=== PATIENT | female | born 1940 | race Caucasian/White ===

== ENCOUNTER 2019-09-16 06:11 | Inpatient (IN) | payer OTHER ==
[2019-09-13 08:07] VITALS: BMI 32.4
[2019-09-16] MEDS ORDERED: ceFAZolin SODIUM 1 GM VIAL ONE ×5 (07:06→19:58)
[2019-09-16 07:12] LABS: INR 0.97 (0.83-1.09); PROTHROMBIN TIME (PATIENT) 11.5 SEC (9.7-13.0)
[2019-09-16 07:14] LABS: ACTIVATED PTT 32.1 SECONDS (25.2-36.5)
[2019-09-16] MEDS ORDERED: BUPIVACAINE LIPOSOME/PF (EXPAREL) 266 MG/20 ML VIAL ONE (07:17)
[2019-09-16] MEDS ORDERED: BUPIVACAINE HCL/PF 0.25% (2.5MG/ML) 10 ML VIAL ONE (07:17)
[2019-09-16] MEDS ORDERED: HEPARIN NA (PORCINE) 5,000 UNITS/ML 1ML VIAL ONE (07:17)
[2019-09-16] MEDS ORDERED: THROMBIN (BOVINE) 5,000 UNIT VIAL TP ONE ×2 (07:18→10:23)
[2019-09-16] MEDS ORDERED: BENZOIN/ALOE VERA/STORAX/TOLU 58 ML BOTTLE ONE (07:18)
[2019-09-16] MEDS ORDERED: fentaNYL CITRATE 250 MCG/5 ML VIAL ONE (07:37)
[2019-09-16] MEDS ORDERED: PROPOFOL 20 ML ONE ×14 (07:38→13:20)
[2019-09-16] MEDS ORDERED: SUCCINYLCHOLINE CHLORIDE 200 MG/10 ML SYRINGE ONE (07:39)
[2019-09-16] MEDS ORDERED: MIDAZOLAM HCL 2 MG/2 ML SINGLE DOSE VIAL ONE (07:39)
[2019-09-16] MEDS ORDERED: morphine SULFATE/PF 0.5 MG/ML (2cc Syringe - QUVA) ONE (07:49)
[2019-09-16] MEDS ORDERED: ceFAZolin SODIUM 1 GM VIAL IVPB ONE ×2 (08:45→13:00)
[2019-09-16] MEDS ORDERED: VANCOMYCIN 1,000 MG VIAL (RESTRICTED TO ID ONLY) IVPB ONE (08:50)
[2019-09-16] MEDS ORDERED: ROCURONIUM BROMIDE 50 MG/5 ML SYRINGE ONE ×2 (09:38→13:22)
[2019-09-16] MEDS ORDERED: LIDOCAINE HCL/PF 2% SDV 5ML VIAL ONE (10:03)
[2019-09-16] MEDS ORDERED: ONDANSETRON 4 MG/2 ML VIAL ONE (10:03)
[2019-09-16] MEDS ORDERED: DEXAMETHASONE SOD PHOSPHATE 4 MG/1 ML VIAL ONE (10:03)
[2019-09-16] MEDS ORDERED: SODIUM CHLORIDE 0.9% P/F 10 ML VIAL IJ ONE (10:03)
[2019-09-16] MEDS ORDERED: LIDOCAINE HCL 2% JELLY (5 ML/TUBE) ONE (10:03)
[2019-09-16] MEDS ORDERED: PHENYLEPHRINE HCL 10 MG/1 ML SINGLE DOSE VIAL ONE (10:03)
[2019-09-16] MEDS ORDERED: GLYCOPYRROLATE 0.2 MG/1 ML VIAL ONE (10:03)
[2019-09-16] MEDS ORDERED: VANCOMYCIN 1,000 MG VIAL (RESTRICTED TO ID ONLY) ONE (10:03)
[2019-09-16] MEDS ORDERED: GELATIN, ABSORBABLE 100 EACH SPONGE TP ONE (10:24)
[2019-09-16] MEDS ORDERED: TRANEXAMIC ACID 1000 MG/10 ML VIAL IVPUSH ONE (13:12)
[2019-09-16] MEDS ORDERED: CEFAZOLIN 2 GM in DEXTROSE 5%-WATER - 50 ML IVPB ONE (13:12)
[2019-09-16] MEDS ORDERED: VANCOMYCIN HCL 1,250 MG in DEXTROSE 5%-WATER - 250 ML IVPB ONE (13:12)
[2019-09-16] MEDS ORDERED: BUPIVACAINE HCL/PF 2.5 MG/ML - 30 ML VIAL IJ ONE (13:29)
[2019-09-16] MEDS ORDERED: BUPIVACAINE LIPOSOME/PF (EXPAREL) 266 MG/20 ML VIAL NR ONE (13:30)
[2019-09-16] MEDS ORDERED: TRANEXAMIC ACID 1000 MG/10 ML VIAL ONE (13:32)
[2019-09-16] MEDS ORDERED: diphenhydrAMINE HCL 25 MG CAPSULE (FP) PO PRN (13:45)
[2019-09-16] MEDS ORDERED: ONDANSETRON 4 MG/2 ML VIAL IVPUSH PRN ×3 (13:45→13:51)
[2019-09-16] MEDS ORDERED: morphine SULFATE/PF 0.5 MG/ML (2cc Syringe - QUVA) IT ONE (13:51)
[2019-09-16] MEDS ORDERED: MORPHINE SULFATE 2 MG/ML VIAL IVPUSH PRN (13:51)
[2019-09-16] MEDS ORDERED: oxyCODONE HCL 5 MG TABLET PO PRN (13:51)
[2019-09-16] MEDS ORDERED: NALOXONE HCL 0.4 MG/ML VIAL IVPUSH PRN (13:51)
[2019-09-16] MEDS ORDERED: LACTATED RINGERS SOLUTION 1,000 ML IV SCH (14:00)
--- NOTE | 2019-09-16 14:07 | OP ---
Operative Note - Note: Operative Date: 09/16/19 Pre-Operative Diagnosis: spinal stenosis, Failed fusion Operation: Exploration and revision of L1-S1 decompression and fusion, removal of hardware, T12-L1 laminectomy/decompression and T11-S1 fusion Post-Operative Diagnosis: Same as Pre-op Surgeon: Jah Enriquez Boathouse Keeper: Cristina Casas Anesthesiologist/FIELD MERCHANDISER: Patricia Peoples Anesthesia: General, Spinal, Local Estimated Blood Loss (mls): 500 Drains, Volume Out (mls): 200 (agosto) Blood Volume Replaced (mls): 125 (cell saver) Fluid Volume Replaced (mls): 1,500 Operative Report Dictated: Yes
[2019-09-16] MEDS ORDERED: CEFAZOLIN 1 GM in DEXTROSE 5%-WATER - 50 ML IVPB SCH (16:00)
[2019-09-16] MEDS ORDERED: metFORMIN HCL 500 MG TABLET (FP) PO SCH (16:30)
[2019-09-16] MEDS ORDERED: GLIMEPIRIDE 4 MG TABLET PO SCH (16:30)
[2019-09-16] MEDS: LACTATED RINGERS SOLUTION 1,000 ML/1,000 ML INFUS.BAG IV SCH (16:30)
[2019-09-16] MEDS ORDERED: INSULIN SLIDING SCALE (NOVOLOG) 1 VIAL SQ SCH (16:30)
[2019-09-16] MEDS ORDERED: DEXTROSE 5%-WATER - 50 ML IVPB ONE ×2 (17:07→19:58)
--- NOTE | 2019-09-16 17:07 | CONSULT ---
Consultation: REQUESTING PROVIDER: Dr. Enriquez CONSULT REQUEST: We have been asked to medically evaluate this patient for post- operative management; patient is s/p exploration and revision of L1-S1 decompression and fusion, removal of hardware, T12-L1 laminectomy/decompression, and T11-S1 fusion. HISTORY OF PRESENT ILLNESS: 78 yo F PMH HTN, HLD, DM, CAD with intermittent claudication and b/l leg numbness and paresthesias to the knees, spinal stenosis w/ prior failed fusion, s/p exploration and revision of L1-S1 decompression and fusion, removal of hardware, T12-L1 laminectomy/decompression, and T11-S1 fusion on 09/16/2019. POD #0. Estimated Blood Loss (mls): 500 Drains, Volume Out (mls): 200 (Alvarez) Blood Volume Replaced (mls): 125 (cell saver) Fluid Volume Replaced (mls): 1,500 Patient denies feeling any pain. Complains of mild throat dryness and pain, as well as nausea. At baseline, patient reports that is able to ambulate with a cane or a walker, which she has used consistently for the past 7 years. She describes her pain as "burning numbness", which she has felt for the past 7 years since her prior fusion. Reports that the feeling from her knees down is approximately 50% of her normal elsewhere. She does not have any numbness or tingling above her knees currently, but occasionally feels similar symptoms down her arms and into her hands. Her pain is unchanged by the time of day, level of activity, or position, and is located in her lower back and both legs below the knees. Initially, she controlled her pain only with Aleve, later also used Vicodin and Percocet, but ultimately weaned herself back to only Aleve. She got the surgery due to ongoing pain that she could not take anymore. REVIEW OF SYSTEMS: CONSTITUTIONAL: denies fever, chills, diaphoresis, generalized weakness, malaise, loss of appetite, weight change HEENT: endorses dry throat, mild pain. Denies rhinorrhea, nasal congestion, throat swelling, difficulty swallowing, mouth swelling, ear pain, eye pain, visual changes CARDIOVASCULAR: denies chest pain, syncope, palpitations, irregular heart rate, lightheadedness, peripheral edema RESPIRATORY: denies cough, shortness of breath, dyspnea with exertion, orthopnea, wheezing, stridor, hemoptysis GASTROINTESTINAL: endorses nausea without vomiting. Denies abdominal pain, abdominal distension, diarrhea, constipation, melena, hematochezia GENITOURINARY: denies dysuria, frequency, urgency, hesitancy, hematuria, flank pain, genital pain MUSCULOSKELETAL: denies myalgias, arthralgias, joint swelling, back pain, neck pain SKIN: denies rash, itching, pallor HEMATOLOGIC/IMMUNOLOGIC: denies easy bleeding, easy bruising, lymphadenopathy, frequent infections ENDOCRINE: denies unexplained weight gain, unexplained weight loss, heat intolerance, cold intolerance NEUROLOGIC: endorses paresthesias, burning pain and numbness below knees bilaterally. Denies headache, focal weakness, dizziness, unsteady gait, seizure, mental status changes, bladder or bowel incontinence PSYCHIATRIC: denies anxiety, depression, suicidal or homicidal ideation, hallucinations. PHYSICAL EXAMINATION Vital Signs - 24 hr 09/16/19 09/16/19 09/16/19 06:55 06:56 14:12 Temperature 98.0 F 98.6 F Pulse Rate 89 110 H Respiratory 20 10 Rate Blood Pressure 148/83 120/71 O2 Sat by Pulse 98 98 Oximetry (%) 09/16/19 09/16/19 09/16/19 14:25 14:40 14:55 Temperature Pulse Rate 105 H 102 H 95 H Respiratory 12 10 14 Rate Blood Pressure 113/57 L 117/57 L 125/62 O2 Sat by Pulse 99 95 99 Oximetry (%) 09/16/19 09/16/19 09/16/19 15:10 15:25 15:40 Temperature Pulse Rate 92 H 95 H 94 H Respiratory 14 15 14 Rate Blood Pressure 119/66 128/69 116/60 O2 Sat by Pulse 98 100 96 Oximetry (%) 09/16/19 09/16/19 09/16/19 15:55 16:10 16:25 Temperature Pulse Rate 95 H 96 H 90 Respiratory 14 16 14 Rate Blood Pressure 109/60 126/60 98/55 L O2 Sat by Pulse 97 97 98 Oximetry (%) 09/16/19 16:35 Temperature 97.8 F Pulse Rate 94 H Respiratory 14 Rate Blood Pressure 108/57 L O2 Sat by Pulse 98 Oximetry (%) GENERAL: Awake, alert, and fully oriented, in no acute distress. HEAD: Normal with no signs of trauma. EYES: Pupils equal, round and reactive to light, extraocular movements intact, sclera anicteric, conjunctiva clear EARS, NOSE, THROAT: Ears normal, nares patent, oropharynx clear NECK: Normal range of motion, supple LUNGS: Breath sounds equal, clear to auscultation bilaterally HEART: Regular rate and rhythm, normal S1 and S2 without murmur, rub or gallop ABDOMEN: Soft, nontender, not distended, normoactive bowel sounds, no guarding, no rebound MUSCULOSKELETAL: Normal range of motion at all joints. No bony deformities or tenderness. No CVA tenderness. UPPER EXTREMITIES: 2+ pulses, warm, well-perfused. No cyanosis. LOWER EXTREMITIES: 2+ pulses, warm, well-perfused. No calf tenderness. No peripheral edema. NEUROLOGICAL: Cranial nerves II-XII intact. Normal speech. 5/10 sensation to light touch below both knees. 5/5 strength in all extremities. PSYCHIATRIC: Cooperative. Good eye contact. Appropriate mood and affect. SKIN: Warm, dry, bandage in place on back, clean, dry and intact Laboratory Results - last 24 hr 09/16/19 09/16/19 09/16/19 06:26 06:26 06:45 PT with INR 11.50 INR 0.97 PTT (Actin FS) 32.1 POC Glucometer 174 Blood Type A POSITIVE Antibody Screen Negative Crossmatch See Detail 09/16/19 09/16/19 07:15 14:54 PT with INR INR PTT (Actin FS) POC Glucometer 307 Blood Type A POSITIVE Antibody Screen Crossmatch Active Medications Generic Name Dose Route Start Last Admin Trade Name Freq PRN Reason Stop Dose Admin Acetaminophen 650 mg 09/16/19 14:00 Tylenol - PO Q6H VENESSA Aspirin 81 mg 09/18/19 10:00 Ecotrin - PO BID VENESSA Atorvastatin Calcium 20 mg 09/16/19 22:00 Lipitor - PO HS VENESSA Chlorhexidine Gluconate 1 applic 09/16/19 22:00 Hibiclens For Decolonization - TP HS VENESSA Diphenhydramine HCl 25 mg 09/16/19 13:45 Benadryl - PO Q6H PRN FOR ITCHING Diphenhydramine HCl 25 mg 09/16/19 13:51 Benadryl Injection - IVPUSH ONCE PRN FOR ITCHING Docusate Sodium 100 mg 09/16/19 14:00 Colace - PO TID [facility] Fentanyl 50 mcg 09/16/19 13:46 09/16/19 15:30 Sublimaze Injection - IVPUSH 25 mcg [id number] PRN Administration PAIN-PACU ORDER X 4 DOSES ONLY Ferrous Sulfate 325 mg 09/17/19 10:00 Feosol - PO DAILY [facility] Folic Acid 1 mg 09/17/19 10:00 Folic Acid - PO DAILY [facility] Glimepiride 4 mg 09/16/19 16:30 Amaryl - PO BIDAC [facility] Lactated Ringer's 1,000 mls @ 75 mls/hr 09/16/19 14:00 Lactated Ringers Solution IV ASDIR [facility] Cefazolin Sodium 1 gm/ 50 mls @ 100 mls/hr 09/16/19 16:00 Dextrose IVPB 09/17/19 08:29 Q8H [facility] Lactated Ringer's 1,000 ml in 1,000 mls @ 100 mls/hr 09/16/19 13:45 09/16/19 16:30 Lactated Ringers Solution IV 0 mls ASDIR [facility] Administration Insulin Aspart 1 vial 09/16/19 16:30 Novolog Vial Sliding Scale - SQ TIDAC [facility] Protocol Metformin HCl 1,000 mg 09/16/19 16:30 Glucophage - PO BIDAC [facility] Morphine Sulfate 2 mg 09/16/19 13:51 Morphine Sulfate IVPUSH Q3H PRN Severe Pain 7-10 Mupirocin 1 applic 09/16/19 22:00 Bactroban Ointment (For Decolonization) - NS 09/21/19 21:59 BID [facility] Naloxone HCl 0.4 mg 09/16/19 13:51 Narcan - IVPUSH ONCE PRN Sedation Non-Formulary Medication 10 unit 09/17/19 10:00 Insulin Aspart [Novolog] SQ DAILY [facility] Non-Formulary Medication 100 mg 09/17/19 10:00 Magnesium Amino Acid Chelate [Magnesium] PO DAILY [facility] Non-Formulary Medication 55 unit 09/16/19 22:00 Semaglutide [Ozempic] SQ HS [facility] Ondansetron HCl 4 mg 09/16/19 13:46 Zofran Injection IVPUSH Q6H PRN NAUSEA AND/OR VOMITING Ondansetron HCl 4 mg 09/16/19 13:45 Zofran Injection IVPUSH Q6H PRN NAUSEA Ondansetron HCl 4 mg 09/16/19 13:51 Zofran Injection IVPUSH ONCE PRN NAUSEA Oxycodone HCl 5 mg 09/16/19 13:51 Roxicodone - PO Q3H PRN Mild Pain 1-3 Oxycodone HCl 10 mg 09/16/19 13:51 Roxicodone - PO Q3H PRN Moderate Pain 4-6 Oxycodone HCl 10 mg 09/17/19 13:51 Oxycontin - PO BID VENESSA Pantoprazole Sodium 40 mg 09/17/19 10:00 Protonix - PO DAILY VENESSA Ramipril 5 mg 09/17/19 10:00 Altace - PO DAILY VENESSA Ranolazine 500 mg 09/16/19 22:00 Ranexa - PO BID VENESSA ASSESSMENT/PLAN: 78 yo F PMH HTN, HLD, IDDM, CAD with intermittent claudication, spinal stenosis w/ prior failed fusion, s/p exploration and revision of L1-S1 decompression and fusion, removal of hardware, T12-L1 laminectomy/decompression, and T11-S1 fusion on 09/16/2019. POD #0. Neuro: - awake, alert, oriented - denies any current pain - endorses ongoing numbness below her knees in both legs - PRN Zofran, oxycodone, fentanyl, diphenhydramine, morphine - hx spinal stenosis w/ prior failed fusion - s/p exploration and revision of L1-S1 decompression and fusion, removal of hardware, T12-L1 laminectomy/decompression, and T11-S1 fusion on 09/16/2019 - no focal deficits CV: - hx HTN - echo from 08/02/2019: normal LV and RV size and function, mild LVH, stage 1 (m ild) LV diastolic dysfunction, no significant valvular abnormalities - no acute concerns - continue home meds Respiratory: - no acute concerns - incentive spirometer - 4L NC GI: - no acute concerns - Protonix 40mg daily Renal: - no acute concerns Endo: - hx DM - hx HLD - continue home meds - BGM ACHS - ISS Heme/Onc: - baseline Hgb from 08/17/2019 was 12.1 - cross matched 2 units pRBCs, but not given - f/u AM CBC ID: - s/p 2g Ancef, vancomycin intra-op - planned for 1g Ancef X3 post-op - f/u posterior spine tissue samples PPX: - SCDs - TEDs - Protonix Dispo: We will continue to follow the patient. Thank you for this consultative opportunity. Visit type - Emergency Visit Emergency Visit: No - New Patient This patient is new to me today: Yes Date on this admission: 09/16/19 - Critical Care Critical Care patient: Yes Total Critical Care Time (in minutes): 45 Critical Care Statement: The care of this patient involved high complexity decision making to prevent further life threatening deterioration of the patient's condition and/or to evaluate & treat vital organ system(s) failure or risk of failure. ATTENDING PHYSICIAN STATEMENT I saw and evaluated the patient. I reviewed the resident's note and discussed the case with the resident. I agree with the resident's findings and plan as documented. SUBJECTIVE: OBJECTIVE: ASSESSMENT AND PLAN:
--- NOTE | 2019-09-16 18:37 | OP ---
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 OPERATIONS PERFORMED: 1. Removal of hardware. 2. Inspection of fusion mass. 3. Revision laminectomy at L1 and laminectomy L1-L2 with undercutting facetectomy left and right hand side. 4. Pedicle screw instrumentation T11 toS1 left and right hand side. 5. Posterolateral arthrodesis T11 to S1 left and right hand side. 6. Cartagena-Tejada osteotomy at T12-L1 level. 7. Use of bone marrow aspirate concentrate and allograft. 8. Biplanar fluoroscopy and intraoperative neuromonitoring. 9. Complex wound closure 30 cm. ANESTHESIA: General. ANTIBIOTICS GIVEN: 2 g Ancef, 1 g vancomycin preop, 1 g Kefzol given intraoperatively at the time of instrumentation. OPERATION DETAILS: Patient correctly identified. Brought to the operating room. The thoracolumbar spine was prepped and draped in the routine manner with Betadine scrub solution, wiped off with alcohol, DuraPrep applied. The patient was placed prone on a Ilan table. Bony points, eyes, and attention to the brachial plexus were all strictly and fastidiously attended to. The belly was free. Midline incision utilized. The dissection was taken proximally to the tip of the spinous process of T10 right down to S1. Proximally a subperiosteal dissection to identify the subperiosteum along the spinous process over the lamina. Immediately the top end of the rods were noted and the hardware was dissected free of fibrous tissue and bone using cautery as well as osteotomes to free the bone off the entire pedicle screw instrumentation system. The kink kyphosis was readily seen at T12-L1. There was splaying of the interspinous ligaments at T11 as well as T12-L1. Using the Dale instrumentation, the hardware was removed completely. This was from both left and right hand side. The actual fusion mass was inspected. It was found that the fusion was solid. The lordosis of the lumbar spine was well maintained, and it was at that point the original plan was to possibly just simply stabilize the thoracolumbar junction, but my concern was a breakdown of the bone graft because of the enormous forces, as she is a heavy woman, at the lumbar and lumbosacral region, so I elected to maintain instrumentation and revision bone grafting right down to the pelvis from the thoracolumbar junction. Once again, that would be from T11 all the way to the sacrum. The first component of the procedure required a decompression, which was a laminectomy with undercutting facetectomy both left and right hand side at T11,12, and revision laminectomy at L1. This was difficult because of previous revision surgery. This was tedious, but ultimately the spinal cord was freed completely at T11, T12, and L1. Incidentally, the S1 drop in neuromonitoring findings preop improved dramatically once this was had been decompressed. This explained by the fact that the S1 takeoff explained the necessity of this decompression appropriately. The adjacent level kyphosis failure was readily noted. There was segmental instability at this level. The pedicles from T11 to S1 were identified. The original pedicles were utilized as well from L1 to S1, excepting each screw that was seated was larger in size. Using anatomical guidelines from posterior as well as lateral fluoroscopy x-ray, the pedicle screws of T11 and T12 were then inserted. This was under the guidance of C-arm so that the screws were placed particularly at T12 under the endplates where the best quality of bone was. The adjacent level kyphosis and failure was at T12-L1. Instead of just relying on 1 fixation point, I elected to do 2 screws that will be 2 levels of fixation at T11-T12 to the original bone graft site that was in situ. In order to inspect the fusion mass, the entire bone graft site was taken down, and the bony anatomy was freed to enable easy access for osteoblastic activity to itself up to the bone graft material that was utilized, which was a combination of autologous bone combined with allograft bone and bone marrow concentrate, which was spun down for the CD34 cells appropriately. The pedicle screw instrumentation was uncomplicated. The screws were tested with the intraoperative neuromonitoring and found to be completely safe above 20 mA. A lateral and anterior posterior fluoroscopic evaluation revealed excellent seating of the instrumentation accordingly. Two rods were contoured to the entire construct. One crosslink utilized as well as the screws. The rods were seated in the tulips, bent, and contoured appropriately to maintain lordosis, and a crosslink enabled solid fixation of the entire construct. At that point, Exparel was seated with an 18-gauge needle into the muscle belly on the left and right hand side independently. This added to the preoperatively seated Duramorph, which was given before the incision was made by the Anesthesia team just for pain management. In order to correct kyphosis, the laminectomy at T12 and L1 was extended out laterally to effectively perform a complete facetectomy and Cartagena-Tejada osteotomy, which gave us some degree of improvement in her vertical sagittal axis balance. The entire procedure was tedious and difficult, but at the end of the procedure, all turned out exactly as planned with improvement of intraoperative neuromonitoring at S1 bilaterally noted and stabilization readily confirmed at the T11-T12, L1-L2 junction but maintenance of strength of the posterolateral arthrodesis and bone graft right down to the pelvis. Complex wound closure was utilized to close this wound. The tissues were hard and thickened. We used 1 Vicryl in the muscle, 1 Vicryl in the fascia, 1 and 2-0 Vicryl in the subcutaneous tissue plane, and dorita for skin. Drainage, 1/8-inch Hemovac x1. OVERALL COMMENT: Operation went extremely well. Difficult procedure. Difficult challenge for a woman with diabetes but no other major comorbid disease. Patient will be nursed in the ICU and then transferred to a rehabilitation facility. Strict activity modification for at least 6 months until the bone grafts are solid. MD LULU Curtis/[id number]
[2019-09-16] MEDS: ACETAMINOPHEN 325 MG TABLET (FP) PO SCH ×2 (20:00→20:01)
[2019-09-16] MEDS: CEFAZOLIN 1 GM in DEXTROSE 5%-WATER - 50 ML IVPB SCH (20:01)
[2019-09-16] MEDS: oxyCODONE HCL 5 MG TABLET PO PRN (20:02)
[2019-09-16] MEDS: ATORVASTATIN CA 20 MG TABLET (FP) PO SCH (21:00)
[2019-09-16] MEDS: MUPIROCIN 2% TOPICAL OINTMENT FOR DECOLONIZATION NS SCH (21:00)
[2019-09-16] MEDS: CHLORHEXIDINE GLUCONATE 4% CLEANSER FOR DECOLONIZATION TP SCH (21:01)
[2019-09-16] MEDS: RANOLAZINE E.R. 500 MG TABLET (FP) PO SCH (21:01)
[2019-09-16] MEDS: DOCUSATE SODIUM 100 MG CAPSULE (FP) PO SCH (21:03)
[2019-09-16] MEDS ORDERED: SEMAGLUTIDE SQ SCH (22:00)
--- NOTE | 2019-09-16 22:06 | PN ---
Teaching Attending Note Name of Resident: Manolo Rodriguez ATTENDING PHYSICIAN STATEMENT I saw and evaluated the patient. I reviewed the resident's note and discussed the case with the resident. I agree with the resident's findings and plan as documented. SUBJECTIVE: This is a 78 year old woman with a history of HTN, hyperlipidemia, CAD, type 2 DM, asthma, spine surgery who comes today for elective spine surgery. She reports having had low back pain radiating down her legs with numbness below her knees. She underwent exploration and revision of L1-S1 decompression and fusion, removal of hardware, T12-L1 laminectomy/decompression and T11-S1 fusion today. OBJECTIVE: Vital Signs Period Temp Pulse Resp BP Sys/Peña Pulse Ox Last 24 Hr 97.8 F-98.6 F 89-110 10-20 98-148/52-83 95-100 HEART: S1S2, RRR LUNGS: Clear ABDOMEN: Obese, soft, non-tender, non-distended, normal BS EXTREMITIES: No edema Laboratory Tests 09/16/19 09/16/19 09/16/19 06:26 06:26 06:45 PT with INR 11.50 INR 0.97 PTT (Actin FS) 32.1 POC Glucometer 174 Blood Type A POSITIVE Antibody Screen Negative Crossmatch See Detail 09/16/19 09/16/19 07:15 14:54 PT with INR INR PTT (Actin FS) POC Glucometer 307 Blood Type A POSITIVE Antibody Screen Crossmatch Home Medications Medication Instructions Recorded Atorvastatin Ca [Lipitor] 20 mg PO HS 09/13/19 Cholecalciferol (Vitamin D3) 1,000 unit PO DAILY 09/13/19 [Vitamin D3 -] Cyanocobalamin [Vitamin B12 -] 100 mcg PO DAILY 09/13/19 Glimepiride [Amaryl -] 4 mg PO BID 09/13/19 Insulin Aspart [Novolog] 10 unit SQ DAILY 09/13/19 Magnesium Amino Acid Chelate 100 mg PO DAILY 09/13/19 [Magnesium] Metformin HCl [Glucophage] 1,000 mg PO BID 09/13/19 Ramipril [Altace] 5 mg PO DAILY 09/13/19 Ranolazine [Ranexa] 500 mg PO BID 09/13/19 Semaglutide [Ozempic] 55 unit SQ HS 09/13/19 ASSESSMENT AND PLAN: This is a 78 year old woman with a history of HTN, hyperlipidemia, CAD, type 2 DM, asthma, spine surgery who presented for elective spine surgery secondary to spinal stenosis and failed fusion. 1. Spinal stenosis, failed fusion - s/p exploration and revision of L1-S1 decompression and fusion, removal of hardware, T12-L1 laminectomy/decompression and T11-S1 fusion on 09/16 - Pain control - Incentive spirometer - Physical therapy 2. HTN - Continue Altace 3. Hyperlipidemia - Continue Lipitor 4. CAD - Continue Ranexa 5. Type 2 DM - Hold semaglutide, metformin, glimepiride - Fingersticks with Novolog sliding scale 6. Obesity with BMI 32.4
[2019-09-16] MEDS ORDERED: ACETAMINOPHEN 1000 MG/100 ML VIAL (NON FORMULARY) IVPB ONE (22:28)
--- NOTE | 2019-09-16 22:38 | HP ---
CHIEF COMPLAINT: POD#0 s/p exploration and revision of L1-S1 decompression and fusion, removal of hardware, T12-L1 laminectomy/decompression, and T11-S1 fusion PCP: HISTORY OF PRESENT ILLNESS: This is a 78 year old female with PMH of HTN, HLD, DM, CAD, and asthma. She presented for elective surgery for spinal fusion, and is POD#0 for exploration and revision of L1-S1 decompression and fusion, removal of hardware, T12-L1 laminectomy/decompression, and T11-S1 fusion. She currently feels nauseated and endorses back pain on movement at the surgical site, and had 1 episode of watery clear vomiting during the interview. She has burped, but has not passed flatus. Her PO intake has been limited to sips of water thus far. She denies fevers/chills, chest pain, SOB, abdominal pain, diarrhea. She initially had spinal surgery done 7 years ago (also with Dr. Enriquez) and hardware was placed at the time. She had been having lower back pain for several months, associated with pain radiating down to her legs, as well as B/L numbness and tingling below the knees. After the surgery, she was pain free for 2 years, after which the pain began to re-surface. She managed the pain with Naproxen, as well as Percocet and Vicodin for a while. Recent Travel: denies PAST MEDICAL HISTORY: HTN, HLD, DM, CAD, and asthma PAST SURGICAL HISTORY: Spinal surgery 7 years ago Social History: Smoking: socially, quit many years ago Alcohol: socially (few drinks/month) Drugs: denies Allergies cyclobenzaprine [From Flexeril] Allergy (Verified 09/13/19 08:07) HOME MEDICATIONS: Home Medications Medication Instructions Recorded Atorvastatin Ca [Lipitor] 20 mg PO HS 09/13/19 Cholecalciferol (Vitamin D3) 1,000 unit PO DAILY 09/13/19 [Vitamin D3 -] Cyanocobalamin [Vitamin B12 -] 100 mcg PO DAILY 09/13/19 Glimepiride [Amaryl -] 4 mg PO BID 09/13/19 Insulin Aspart [Novolog] 10 unit SQ DAILY 09/13/19 Magnesium Amino Acid Chelate 100 mg PO DAILY 09/13/19 [Magnesium] Metformin HCl [Glucophage] 1,000 mg PO BID 09/13/19 Ramipril [Altace] 5 mg PO DAILY 09/13/19 Ranolazine [Ranexa] 500 mg PO BID 09/13/19 Semaglutide [Ozempic] 55 unit SQ HS 09/13/19 REVIEW OF SYSTEMS CONSTITUTIONAL: Absent: fever, chills, diaphoresis, generalized weakness, malaise, loss of appetite, weight change HEENT: Absent: rhinorrhea, nasal congestion, throat pain, throat swelling, difficulty swallowing, mouth swelling, ear pain, eye pain, visual changes CARDIOVASCULAR: Absent: chest pain, syncope, palpitations, irregular heart rate, lightheadedness , peripheral edema RESPIRATORY: Absent: cough, shortness of breath, dyspnea with exertion, orthopnea, wheezing, stridor, hemoptysis GASTROINTESTINAL: nausea, vomiting Absent: abdominal pain, abdominal distension, nausea, vomiting, diarrhea, constipation, melena, hematochezia GENITOURINARY: Absent: dysuria, frequency, urgency, hesitancy, hematuria, flank pain, genital pain MUSCULOSKELETAL: Absent: myalgia, arthralgia, joint swelling, back pain, neck pain SKIN: Absent: rash, itching, pallor HEMATOLOGIC/IMMUNOLOGIC: Absent: easy bleeding, easy bruising, lymphadenopathy, frequent infections ENDOCRINE: Absent: unexplained weight gain, unexplained weight loss, heat intolerance, cold intolerance NEUROLOGIC: Absent: headache, focal weakness or paresthesias, dizziness, unsteady gait, seizure, mental status changes, bladder or bowel incontinence PSYCHIATRIC: Absent: anxiety, depression, suicidal or homicidal ideation, hallucinations. PHYSICAL EXAMINATION Vital Signs - 24 hr 09/16/19 09/16/19 09/16/19 06:55 06:56 14:12 Temperature 98.0 F 98.6 F Pulse Rate 89 110 H Respiratory 20 10 Rate Blood Pressure 148/83 120/71 O2 Sat by Pulse 98 98 Oximetry (%) 09/16/19 09/16/19 09/16/19 14:25 14:40 14:55 Temperature Pulse Rate 105 H 102 H 95 H Respiratory 12 10 14 Rate Blood Pressure 113/57 L 117/57 L 125/62 O2 Sat by Pulse 99 95 99 Oximetry (%) 09/16/19 09/16/19 09/16/19 15:10 15:25 15:40 Temperature Pulse Rate 92 H 95 H 94 H Respiratory 14 15 14 Rate Blood Pressure 119/66 128/69 116/60 O2 Sat by Pulse 98 100 96 Oximetry (%) 09/16/19 09/16/19 09/16/19 15:55 16:10 16:25 Temperature Pulse Rate 95 H 96 H 90 Respiratory 14 16 14 Rate Blood Pressure 109/60 126/60 98/55 L O2 Sat by Pulse 97 97 98 Oximetry (%) 09/16/19 09/16/19 09/16/19 16:35 17:45 20:21 Temperature 97.8 F Pulse Rate 94 H 91 H Respiratory 14 10 Rate Blood Pressure 108/57 L 108/52 L O2 Sat by Pulse 98 95 Oximetry (%) GENERAL: Awake, alert, and fully oriented, in no acute distress. HEAD: Normal with no signs of trauma. EYES: Pupils equal, round and reactive to light, extraocular movements intact, sclera anicteric, conjunctiva clear. No lid lag. EARS, NOSE, THROAT: Ears normal, nares patent, oropharynx clear without exudates. Moist mucous membranes. NECK: Normal range of motion, supple without lymphadenopathy, JVD, or masses. LUNGS: Breath sounds equal, clear to auscultation bilaterally. No wheezes, and no crackles. No accessory muscle use. HEART: Regular rate and rhythm, normal S1 and S2 without murmur, rub or gallop. ABDOMEN: Soft, nontender, not distended, normoactive bowel sounds, no guarding, no rebound, no masses. No hepatomegaly or splenomegaly. MUSCULOSKELETAL: Normal range of motion at all joints. No bony deformities or tenderness. No CVA tenderness. UPPER EXTREMITIES: 2+ pulses, warm, well-perfused. No cyanosis. No clubbing. No peripheral edema. LOWER EXTREMITIES: 2+ pulses, warm, well-perfused. No calf tenderness. No peripheral edema. NEUROLOGICAL: Motor 5/5, sensations intact B/L PSYCHIATRIC: Cooperative. Good eye contact. Appropriate mood and affect. SKIN: Large wound dressing in place on back, surgical site clear with no discharge, surrounding erythema, or tenderness Laboratory Results - last 24 hr 09/16/19 09/16/19 09/16/19 06:26 06:26 06:45 PT with INR 11.50 INR 0.97 PTT (Actin FS) 32.1 POC Glucometer 174 Blood Type A POSITIVE Antibody Screen Negative Crossmatch See Detail 09/16/19 09/16/19 07:15 14:54 PT with INR INR PTT (Actin FS) POC Glucometer 307 Blood Type A POSITIVE Antibody Screen Crossmatch ASSESSMENT/PLAN: This is a 78 year old female with PMH of HTN, HLD, DM, CAD, and asthma. She presented for elective surgery for spinal fusion, and is POD#0 for exploration and revision of L1-S1 decompression and fusion, removal of hardware, T12-L1 laminectomy/decompression, and T11-S1 fusion. #Post-op care - Symptom control with PRN Zofran, oxycodone, fentanyl, diphenhydramine, morphine - Pain currently under control, complaining of nausea - Incentive spirometery encouraged, currently on NC 4L - Ancef 2x and Vanco 1x given pre-op, currently afebrile, surgical site is clean with no D/C or surrounding erythema - Tissue cx pending - 2 units PRBC cross matched, not given yet. Will f/u CBC in AM. Hgb was 12.1 on 08/17/19 - Protonix 40mg daily #Hx of DM - BGM ISS ACHS started #Hx of HTN - Home meds resumed #FEN - Currently on LR @ 100 - CMP ordered in AM - Advance diet as tolerated, currently on liquids #DVT - SCDs Visit type - Emergency Visit Emergency Visit: No - New Patient This patient is new to me today: Yes Date on this admission: 09/24/19 - Critical Care Critical Care patient: No ATTENDING PHYSICIAN STATEMENT I saw and evaluated the patient. I reviewed the resident's note and discussed the case with the resident. I agree with the resident's findings and plan as documented. SUBJECTIVE: OBJECTIVE: ASSESSMENT AND PLAN:
[2019-09-17] MEDS ORDERED: DEXTROSE 5%-WATER - 50 ML IVPB ONE (01:41)
[2019-09-17] MEDS ORDERED: ceFAZolin SODIUM 1 GM VIAL ONE (01:41)
[2019-09-17] MEDS: CEFAZOLIN 1 GM in DEXTROSE 5%-WATER - 50 ML IVPB SCH (01:45)
[2019-09-17] MEDS: ACETAMINOPHEN 325 MG TABLET (FP) PO SCH ×5 (02:00→20:55)
[2019-09-17] MEDS: DOCUSATE SODIUM 100 MG CAPSULE (FP) PO SCH ×4 (03:53→21:22)
[2019-09-17] MEDS: ALBUTEROL SO4 2.5/IPRATROPIUM 0.5 INH SOL 3 ML VIAL.NEB. NEB PRN ×2 (04:51→21:05)
[2019-09-17] MEDS: INSULIN SLIDING SCALE (NOVOLOG) 1 VIAL SQ SCH ×4 (06:14→21:39)
[2019-09-17] MEDS: LACTATED RINGERS SOLUTION 1,000 ML/1,000 ML INFUS.BAG IV SCH ×3 (07:00→13:52)
[2019-09-17 07:06] LABS: HEMATOCRIT 28.7 % (32.4-45.2); HEMOGLOBIN 9.1 GM/dL (10.7-15.3); MCH 26.4 pg (25.7-33.7); MCHC 31.8 g/dl (32.0-36.0); MEAN PLT VOLUME 11.3 fl (7.5-11.1); PLATELET COUNT 156 K/MM3 (134-434); RBC 3.46 M/mm3 (3.60-5.2); RDW 13.6 % (11.6-15.6); WHITE BLOOD COUNT 11.9 K/mm3 (4.0-10.0)
[2019-09-17 07:07] LABS: BASO % 0.2 % (0-2.0); EOS % 0.1 % (0-4.5); HEMATOCRIT 30.6 % (32.4-45.2); HEMOGLOBIN 9.6 GM/dL (10.7-15.3); LYMPH % 13.3 % (8-40); MCH 26.5 pg (25.7-33.7); MCHC 31.3 g/dl (32.0-36.0); MEAN CELL VOLUME 84.7 fl (80-96); MEAN PLT VOLUME 11.2 fl (7.5-11.1); MONO % 10.8 % (3.8-10.2); NEUT % 75.6 % (42.8-82.8); PLATELET COUNT 161 K/MM3 (134-434); RBC 3.61 M/mm3 (3.60-5.2); RDW 13.6 % (11.6-15.6); WHITE BLOOD COUNT 12.5 K/mm3 (4.0-10.0)
[2019-09-17 07:27] LABS: ALBUMIN 2.8 g/dl (3.4-5.0); BILIRUBIN,TOTAL 0.7 mg/dL (0.2-1); BLOOD UREA NITROGEN 11.4 mg/dL (7-18); CALCIUM 8.6 mg/dL (8.5-10.1); CREATININE 1.3 mg/dL (0.55-1.3); MAGNESIUM 1.6 mg/dL (1.8-2.4); PHOSPHOROUS 3.6 mg/dL (2.5-4.9); POTASSIUM 4.6 mmol/L (3.5-5.1); TOT PROT 5.1 g/dl (6.4-8.2)
[2019-09-17] MEDS ORDERED: MAGNESIUM SULF 50% (8.12 MEQ/2 ML-1 GM VIAL) IVPB ONE ×2 (07:36→15:43)
[2019-09-17] MEDS: FOLIC ACID 1 MG TABLET (FP) PO SCH (09:42)
[2019-09-17] MEDS: RAMIPRIL 5 MG CAPSULE (FP) PO SCH (09:42)
[2019-09-17] MEDS: FERROUS SO4 325 MG TABLET (FP) PO SCH (09:42)
[2019-09-17] MEDS: PANTOPRAZOLE 40 MG TABLET PO SCH (09:42)
[2019-09-17] MEDS: RANOLAZINE E.R. 500 MG TABLET (FP) PO SCH ×2 (09:43→21:23)
[2019-09-17] MEDS: MUPIROCIN 2% TOPICAL OINTMENT FOR DECOLONIZATION NS SCH ×2 (09:44→21:22)
--- NOTE | 2019-09-17 09:45 | PN ---
Teaching Attending Note Name of Resident: Jami Husain ATTENDING PHYSICIAN STATEMENT I saw and evaluated the patient. I reviewed the resident's note and discussed the case with the resident. I agree with the resident's findings and plan as documented. Seen and examined; please see resident note for further historical information. I personally verified all whitten historical information and exam findings. Personally interpreted all imaging and diagnostics and reviewed appropriate consults. I reviewed all labs and vital signs as per resident note and EMR as documented. I agree with the above assessment and plan unless supplemented by myself in the following. She is hemodynamically stable and afebrile with stability ascertained to transfer out of the ICU. Complains of some buttock numbness but is neurovascularly intact. Will discuss with primary surgical service regarding imaging. Resident states that they will see them tonight. 10 item review of systems completed and is negative aside from as discussed in the subjective data in my own/the resident documentation. VS, labs, imaging reviewed NAD, AAO, resting comfortably in bed. RRR s1/2 no mgr Normal muscle tone, moves all 5 extremities with normal apparent strength Neck is supple, trachea midline, no kasi LN Lungs CTAB with sym expansion NT ND +BS no kasi organomegaly CN2-12 wnl; no FND NC AT EOMI PERRLA Normal mood, appropriate behavior, euthymic affect No skin breakdown or rashes noted Assessment and plan: Patient is a 78-year-old female with a history of hypertension hyperlipidemia coronary artery disease diabetes asthma status post multiple spine surgeries presenting with elective spine revision with radicular neuropathic pain being present as an outpatient. The procedure is elective. She underwent exploration and revision of L1-S1 decompression with fusion removal of hardware and T12-L1 appendectomy and decompression with T11-S1 fusion. Problems include: Buttock numbness, somewhat similar to her preceding symptoms but she endorses persisting postoperative issues. Discussed with primary service who will see her later tonight. Hypertension, continue Altace Hyperlipidemia, continue statin Coronary artery disease, continue Ranexa. On home statin, not on home aspirin. Should address with primary care. Diabetes mellitus type 2, holding semaglutide metformin and glimepiride and placing on sliding scale throughout her time here. 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 Will be potential impotence to surgical wound healing. Full Code
[2019-09-17] MEDS ORDERED: PATIENT'S OWN MEDICATION (NON-FORMULARY) (Insulin Aspart [Novolog] 10 UNIT) SQ SCH (10:00)
[2019-09-17] MEDS ORDERED: CYANOCOBALAMIN (VITAMIN B-12) 100 MCG TABLET PO SCH (10:00)
[2019-09-17] MEDS ORDERED: MAGNESIUM AMINO ACID CHELATE PO SCH (10:00)
--- NOTE | 2019-09-17 10:00 | PN ---
Progress Note, Physician Chief Complaint: s/p lumbar fusion under general anesthesia History of Present Illness: post op day one with intrathecal duramorph for post op pain - Current Medication List Current Medications: Active Medications Acetaminophen (Tylenol -) 650 mg PO Q6H [facility] Last Admin: 09/17/19 07:13 Dose: 650 mg Albuterol/Ipratropium (Duoneb -) 1 amp NEB Q4H PRN PRN Reason: SHORTNESS OF BREATH Last Admin: 09/17/19 04:51 Dose: 1 amp Aspirin (Ecotrin -) 81 mg PO BID [facility] Atorvastatin Calcium (Lipitor -) 20 mg PO [facility] Last Admin: 09/16/19 21:00 Dose: 20 mg Chlorhexidine Gluconate (Hibiclens For Decolonization -) 1 applic TP [facility] Last Admin: 09/16/19 21:01 Dose: 1 applic Diphenhydramine HCl (Benadryl -) 25 mg PO Q6H PRN PRN Reason: FOR ITCHING Diphenhydramine HCl (Benadryl Injection -) 25 mg IVPUSH ONCE PRN PRN Reason: FOR ITCHING Docusate Sodium (Colace -) 100 mg PO TID [facility] Last Admin: 09/17/19 06:14 Dose: 100 mg Fentanyl (Sublimaze Injection -) 50 mcg IVPUSH [id number] PRN PRN Reason: PAIN-PACU ORDER X 4 DOSES ONLY Last Admin: 09/16/19 15:30 Dose: 25 mcg Ferrous Sulfate (Feosol -) 325 mg PO DAILY [facility] Last Admin: 09/17/19 09:42 Dose: 325 mg Folic Acid (Folic Acid -) 1 mg PO DAILY [facility] Last Admin: 09/17/19 09:42 Dose: 1 mg Lactated Ringer's (Lactated Ringers Solution) 1,000 ml in 1,000 mls @ 100 mls/ hr IV ASDIR [facility] Last Admin: 09/17/19 07:00 Dose: 100 mls/hr Magnesium Sulfate/Dextrose 1 (gm/ Miscellaneous) 100 mls @ 100 mls/hr IVPB ONCE ONE Stop: 09/17/19 10:40 Last Admin: 09/17/19 09:50 Dose: Not Given Insulin Aspart (Novolog Vial Sliding Scale -) 1 vial SQ [facility]; Protocol Last Admin: 09/17/19 06:14 Dose: 4 units Magnesium Sulfate (Magnesium Sulfate) 1 gm IVPB ONCE ONE Stop: 09/17/19 07:37 Last Admin: 09/17/19 08:30 Dose: 1 gm Morphine Sulfate (Morphine Sulfate) 2 mg IVPUSH Q3H PRN PRN Reason: Severe Pain 7-10 Mupirocin (Bactroban Ointment (For Decolonization) -) 1 applic NS BID [facility] Stop: 09/21/19 21:59 Last Admin: 09/17/19 09:44 Dose: 1 applic Naloxone HCl (Narcan -) 0.4 mg IVPUSH ONCE PRN PRN Reason: Sedation Non-Formulary Medication (Magnesium Amino Acid Chelate [Magnesium]) 100 mg PO DAILY [facility] Ondansetron HCl (Zofran Injection) 4 mg IVPUSH Q6H PRN PRN Reason: NAUSEA AND/OR VOMITING Last Admin: 09/16/19 21:30 Dose: 4 mg Ondansetron HCl (Zofran Injection) 4 mg IVPUSH Q6H PRN PRN Reason: NAUSEA Ondansetron HCl (Zofran Injection) 4 mg IVPUSH ONCE PRN PRN Reason: NAUSEA Oxycodone HCl (Roxicodone -) 5 mg PO Q3H PRN PRN Reason: Mild Pain 1-3 Oxycodone HCl (Roxicodone -) 10 mg PO Q3H PRN PRN Reason: Moderate Pain 4-6 Oxycodone HCl (Oxycontin -) 10 mg PO BID [facility] Pantoprazole Sodium (Protonix -) 40 mg PO DAILY [facility] Last Admin: 09/17/19 09:42 Dose: 40 mg Ramipril (Altace -) 5 mg PO DAILY [facility] Last Admin: 09/17/19 09:42 Dose: Not Given Ranolazine (Ranexa -) 500 mg PO BID [facility] Last Admin: 09/17/19 09:43 Dose: 500 mg - Objective Vital Signs: Vital Signs Temperature 98.1 F 09/17/19 08:00 Pulse Rate 81 09/17/19 08:00 Respiratory Rate 14 09/17/19 08:00 Blood Pressure 102/50 L 09/17/19 08:00 O2 Sat by Pulse Oximetry (%) 99 09/17/19 08:00 Constitutional: Yes: Well Nourished Cardiovascular: Yes: WNL Respiratory: Yes: WNL Gastrointestinal: Yes: WNL Labs: CBC, BMP 09/17/19 05:25 09/17/19 05:25 INR, PTT INR 0.97 (0.83-1.09) 09/16/19 06:26 Assessment/Plan Patient sitting in chair, pain controlled, complaining about numbness in hips, likely not related to anesthetic, no other complaints, dept of anesthesia will sign off care at this time
--- NOTE | 2019-09-17 10:04 | PN ---
Progress Note (short form) - Note Progress Note: POD#1 PT states that she is having some back pain. She is reluctant to take narcotics because she hallucinated with taking flexeril in the past. NO CP/SOB. had some nausea/emesis overnight. Vital Signs Period Temp Pulse Resp BP Sys/Peña Pulse Ox Last 24 Hr 97.8 F-98.6 F 80-110 10-18 84-128/36-75 95-100 RAI:240 bloody FC: 600ml GEN: A&0x3, NAD CV: RRR Lungs: CTA b/l anterioly ABD: soft, non-distended, non-tender. LE: no calf tenderness or swelling b/l. SCDs in place. CBC, BMP // 05:25 09/17/19 05:25 A/P; 78 yo female s/p Exploration and revision of L1-S1 decompression and fusion, removal of hardware, T12-L1 laminectomy/decompression and T11-S1 fusion Continue diabetic diet as tolerated OOB to chair with assistance/ambluate with PT DVT ppx begin aspirin 81 mg BID tomorrow(ordered), oob/ambualte/SCDs oral pain medications as needed/stool softners D/w Dr. Enriquez
--- NOTE | 2019-09-17 12:37 | PN ---
Teaching Attending Note Name of Resident: Nayla Obrien ATTENDING PHYSICIAN STATEMENT I saw and evaluated the patient. I reviewed the resident's note and discussed the case with the resident. I agree with the resident's findings and plan as documented. SUBJECTIVE: Pt seen and examined in the ICU. Pain relatively controlled. c/o right buttock numbness. No fevers, chills. Nauseous and vomiting with coughing fit yesterday. OBJECTIVE: Vital Signs Period Temp Pulse Resp BP Sys/Peña Pulse Ox Last 24 Hr 97.7 F-98.6 F 80-110 10-18 84-128/36-75 95-100 Intake & Output 09/14/19 09/15/19 09/16/19 09/17/19 23:59 23:59 23:59 23:59 Intake Total 2125 1069 Output Total 1470 540 Balance 655 529 Gen: NAD in chair Heart: RRR Lung: decreased breath sounds at the bases Abd: soft, nontender Ext: no edema CBC, BMP 09/17/19 05:25 09/17/19 05:25 Active Medications Acetaminophen (Tylenol -) 650 mg PO Q6H [facility] Last Admin: 09/17/19 07:13 Dose: 650 mg Albuterol/Ipratropium (Duoneb -) 1 amp NEB Q4H PRN PRN Reason: SHORTNESS OF BREATH Last Admin: 09/17/19 04:51 Dose: 1 amp Aspirin (Ecotrin -) 81 mg PO BID [facility] Atorvastatin Calcium (Lipitor -) 20 mg PO [facility] Last Admin: 09/16/19 21:00 Dose: 20 mg Chlorhexidine Gluconate (Hibiclens For Decolonization -) 1 applic TP [facility] Last Admin: 09/16/19 21:01 Dose: 1 applic Diphenhydramine HCl (Benadryl -) 25 mg PO Q6H PRN PRN Reason: FOR ITCHING Diphenhydramine HCl (Benadryl Injection -) 25 mg IVPUSH ONCE PRN PRN Reason: FOR ITCHING Docusate Sodium (Colace -) 100 mg PO TID [facility] Last Admin: 09/17/19 06:14 Dose: 100 mg Fentanyl (Sublimaze Injection -) 50 mcg IVPUSH [id number] PRN PRN Reason: PAIN-PACU ORDER X 4 DOSES ONLY Last Admin: 09/16/19 15:30 Dose: 25 mcg Ferrous Sulfate (Feosol -) 325 mg PO DAILY [facility] Last Admin: 09/17/19 09:42 Dose: 325 mg Folic Acid (Folic Acid -) 1 mg PO DAILY [facility] Last Admin: 09/17/19 09:42 Dose: 1 mg Lactated Ringer's (Lactated Ringers Solution) 1,000 ml in 1,000 mls @ 100 mls/ hr IV ASDIR [facility] Last Admin: 09/17/19 11:46 Dose: 100 mls/hr Insulin Aspart (Novolog Vial Sliding Scale -) 1 vial SQ ACHS [facility]; Protocol Last Admin: 09/17/19 11:48 Dose: 4 units Morphine Sulfate (Morphine Sulfate) 2 mg IVPUSH Q3H PRN PRN Reason: Severe Pain 7-10 Mupirocin (Bactroban Ointment (For Decolonization) -) 1 applic NS BID [facility] Stop: 09/21/19 21:59 Last Admin: 09/17/19 09:44 Dose: 1 applic Naloxone HCl (Narcan -) 0.4 mg IVPUSH ONCE PRN PRN Reason: Sedation Ondansetron HCl (Zofran Injection) 4 mg IVPUSH Q6H PRN PRN Reason: NAUSEA AND/OR VOMITING Last Admin: 09/16/19 21:30 Dose: 4 mg Ondansetron HCl (Zofran Injection) 4 mg IVPUSH Q6H PRN PRN Reason: NAUSEA Ondansetron HCl (Zofran Injection) 4 mg IVPUSH ONCE PRN PRN Reason: NAUSEA Oxycodone HCl (Roxicodone -) 5 mg PO Q3H PRN PRN Reason: Mild Pain 1-3 Oxycodone HCl (Roxicodone -) 10 mg PO Q3H PRN PRN Reason: Moderate Pain 4-6 Oxycodone HCl (Oxycontin -) 10 mg PO BID [facility] Pantoprazole Sodium (Protonix -) 40 mg PO DAILY [facility] Last Admin: 09/17/19 09:42 Dose: 40 mg Ramipril (Altace -) 5 mg PO DAILY [facility] Last Admin: 09/17/19 09:42 Dose: Not Given Ranolazine (Ranexa -) 500 mg PO BID [facility] Last Admin: 09/17/19 09:43 Dose: 500 mg ASSESSMENT AND PLAN: Lumbar Spinal Stenosis/Failed Fusion s/p exploration/revision L1-S1/STEVEN/T12/L1 Laminectomy/Decompresion/T11-S1 Fusin CAD HTN DM Hyperlipidemia - pain control - incentive spirometry - IVF - PO as tolerated - antiemetics - PT - DVT prophylaxis - disposition per surgery
[2019-09-17] MEDS: oxyCODONE HCL 10 MG SUSTAINED ACTING TABLET PO SCH ×2 (12:54→21:27)
--- NOTE | 2019-09-17 15:15 | PN ---
Physical Exam: SUBJECTIVE: Patient seen and examined. No acute overnight events. C/o mild numbness to R buttock. Will continue to monitor. OBJECTIVE: Vital Signs Period Temp Pulse Resp BP Sys/Peña Pulse Ox Last 24 Hr 97.7 F-98.5 F 80-96 10-18 84-128/36-75 95-100 GENERAL: The patient is awake, alert, and fully oriented, in no acute distress. HEENT: NCAT PERRLA EOMI LUNGS: Breath sounds equal, clear to auscultation bilaterally HEART: Regular rate and rhythm, S1, S2 without murmur, rub or gallop. ABDOMEN: Soft, nontender, nondistended, normoactive bowel sounds EXTREMITIES: 2+ pulses, warm, well-perfused, no edema. NEUROLOGICAL: Cranial nerves II through XII grossly intact. Motor 5/5 UE & LE. Sensation intact UE/LE. Mild numbness to R buttock. PSYCH: Normal mood, normal affect. SKIN: back dressing in place c/d/i no signs of infection Laboratory Results - last 24 hr 09/17/19 09/17/19 09/17/19 05:25 05:25 05:25 WBC 11.9 H 12.5 H RBC 3.46 L 3.61 Hgb 9.1 L 9.6 L Hct 28.7 L 30.6 L MCV 83.0 84.7 MCH 26.4 26.5 MCHC 31.8 L 31.3 L RDW 13.6 13.6 Plt Count 156 161 MPV 11.3 H 11.2 H Absolute Neuts (auto) 9.5 H Neutrophils % 75.6 Lymphocytes % 13.3 Monocytes % 10.8 H Eosinophils % 0.1 Basophils % 0.2 Nucleated RBC % 0 Sodium 142 Potassium 4.6 Chloride 106 Carbon Dioxide 29 Anion Gap 7 L BUN 11.4 Creatinine 1.3 Est GFR (CKD-EPI)AfAm 46.15 Est GFR (CKD-EPI)NonAf 39.82 POC Glucometer Random Glucose 227 H Calcium 8.6 Phosphorus 3.6 Magnesium 1.6 L Total Bilirubin 0.7 AST 29 ALT 45 Alkaline Phosphatase 64 Total Protein 5.1 L Albumin 2.8 L 09/17/19 09/17/19 06:10 11:43 WBC RBC Hgb Hct MCV MCH MCHC RDW Plt Count MPV Absolute Neuts (auto) Neutrophils % Lymphocytes % Monocytes % Eosinophils % Basophils % Nucleated RBC % Sodium Potassium Chloride Carbon Dioxide Anion Gap BUN Creatinine Est GFR (CKD-EPI)AfAm Est GFR (CKD-EPI)NonAf POC Glucometer 212 229 Random Glucose Calcium Phosphorus Magnesium Total Bilirubin AST ALT Alkaline Phosphatase Total Protein Albumin Active Medications Current Medications Acetaminophen (Tylenol -) 650 mg PO Q6H [facility] Last Admin: 09/17/19 13:34 Dose: 650 mg Albuterol/Ipratropium (Duoneb -) 1 amp NEB Q4H PRN PRN Reason: SHORTNESS OF BREATH Last Admin: 09/17/19 04:51 Dose: 1 amp Aspirin (Ecotrin -) 81 mg PO BID [facility] Atorvastatin Calcium (Lipitor -) 20 mg PO HS [facility] Last Admin: 09/16/19 21:00 Dose: 20 mg Chlorhexidine Gluconate (Hibiclens For Decolonization -) 1 applic TP [facility] Last Admin: 09/16/19 21:01 Dose: 1 applic Diphenhydramine HCl (Benadryl -) 25 mg PO Q6H PRN PRN Reason: FOR ITCHING Diphenhydramine HCl (Benadryl Injection -) 25 mg IVPUSH ONCE PRN PRN Reason: FOR ITCHING Docusate Sodium (Colace -) 100 mg PO TID [facility] Last Admin: 09/17/19 13:34 Dose: 100 mg Fentanyl (Sublimaze Injection -) 50 mcg IVPUSH [id number] PRN PRN Reason: PAIN-PACU ORDER X 4 DOSES ONLY Last Admin: 09/16/19 15:30 Dose: 25 mcg Ferrous Sulfate (Feosol -) 325 mg PO DAILY [facility] Last Admin: 09/17/19 09:42 Dose: 325 mg Folic Acid (Folic Acid -) 1 mg PO DAILY [facility] Last Admin: 09/17/19 09:42 Dose: 1 mg Lactated Ringer's (Lactated Ringers Solution) 1,000 ml in 1,000 mls @ 100 mls/hr IV ASDIR [facility] Last Admin: 09/17/19 13:52 Dose: Not Given Insulin Aspart (Novolog Vial Sliding Scale -) 1 vial SQ [facility]; Protocol Last Admin: 09/17/19 11:48 Dose: 4 units Insulin Detemir (Levemir Vial) 5 units SQ [facility] Morphine Sulfate (Morphine Sulfate) 2 mg IVPUSH Q3H PRN PRN Reason: Severe Pain 7-10 Mupirocin (Bactroban Ointment (For Decolonization) -) 1 applic NS BID [facility] Stop: 09/21/19 21:59 Last Admin: 09/17/19 09:44 Dose: 1 applic Naloxone HCl (Narcan -) 0.4 mg IVPUSH ONCE PRN PRN Reason: Sedation Ondansetron HCl (Zofran Injection) 4 mg IVPUSH Q6H PRN PRN Reason: NAUSEA AND/OR VOMITING Last Admin: 09/16/19 21:30 Dose: 4 mg Ondansetron HCl (Zofran Injection) 4 mg IVPUSH Q6H PRN PRN Reason: NAUSEA Ondansetron HCl (Zofran Injection) 4 mg IVPUSH ONCE PRN PRN Reason: NAUSEA Oxycodone HCl (Roxicodone -) 5 mg PO Q3H PRN PRN Reason: Mild Pain 1-3 Oxycodone HCl (Roxicodone -) 10 mg PO Q3H PRN PRN Reason: Moderate Pain 4-6 Oxycodone HCl (Oxycontin -) 10 mg PO BID [facility] Last Admin: 09/17/19 12:54 Dose: 10 mg Pantoprazole Sodium (Protonix -) 40 mg PO DAILY [facility] Last Admin: 09/17/19 09:42 Dose: 40 mg Ramipril (Altace -) 5 mg PO DAILY [facility] Last Admin: 09/17/19 09:42 Dose: Not Given Ranolazine (Ranexa -) 500 mg PO BID [facility] Last Admin: 09/17/19 09:43 Dose: 500 mg ASSESSMENT/PLAN: 78 y.o. F PMH HTN, HLD, DM, CAD, and asthma. POD#1 s/p exploration and revision of L1-S1 decompression and fusion, removal of hardware, T12-L1 laminectomy/decompression, and T11-S1 fusion. 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 -PRN Zofran, oxycodone, fentanyl, diphenhydramine, morphine for pain control #CV -Hx HTN -continue home ramipril 5mg #Pulm -incentive spirometer q15min -duonebs prn -no acute issues saturating well on RA #ID -Ancef 2x and Vanco 1x given pre-op -f/u tissue cultures #GI -protonix 40mg daily #Endo -hx of DM -BGM ISS ACHS #FENLTD -Currently on LR @ 100 -mag repleted -na controlled/ diabetic diet #DVT -SCDs -protonix -OOBTC, PT eval Visit type - Emergency Visit Emergency Visit: No - New Patient This patient is new to me today: Yes Date on this admission: 09/17/19 - Critical Care Critical Care patient: Yes Total Critical Care Time (in minutes): 45 Critical Care Statement: The care of this patient involved high complexity decision making to prevent further life threatening deterioration of the patient's condition and/or to evaluate & treat vital organ system(s) failure or risk of failure. ATTENDING PHYSICIAN STATEMENT I saw and evaluated the patient. I reviewed the resident's note and discussed the case with the resident. I agree with the resident's findings and plan as documented. SUBJECTIVE: OBJECTIVE: ASSESSMENT AND PLAN:
--- NOTE | 2019-09-17 15:20 | PN ---
Physical Exam: SUBJECTIVE: Patient seen and examined. Patient now complaining of numbness over right buttocks that was not present prior to surgery, however this improved throughout the day. Dr. Enriquez made aware and stated that he will see patient. States that pain is under control. Has not passed gas as of this morning but is burping. OBJECTIVE: Vital Signs Period Temp Pulse Resp BP Sys/Peña Pulse Ox Last 24 Hr 97.7 F-98.5 F 80-96 10-18 84-128/36-75 95-100 GENERAL: The patient is awake, alert, and fully oriented, in no acute distress. HEAD: Normal with no signs of trauma. EYES: PERRL, EOMI ENT: MMM NECK: Trachea midline, full range of motion, supple. LUNGS: Breath sounds equal, clear to auscultation bilaterally, no wheezes, no crackles, no accessory muscle use. HEART: RRR, no murmur noted ABDOMEN: Soft, nontender, nondistended, normoactive bowel sounds, no guarding EXTREMITIES: 2+ pulses, warm, well-perfused, no edema. NEUROLOGICAL: Cranial nerves II through XII grossly intact. Normal speech, gait not observed. 5/5 strength upper and lower extremities. decreased sensation over lateral aspect of right buttocks PSYCH: Normal mood, normal affect. SKIN: Warm, dry. surgical dressing in place over back Laboratory Results - last 24 hr 09/17/19 09/17/19 09/17/19 05:25 05:25 05:25 WBC 11.9 H 12.5 H RBC 3.46 L 3.61 Hgb 9.1 L 9.6 L Hct 28.7 L 30.6 L MCV 83.0 84.7 MCH 26.4 26.5 MCHC 31.8 L 31.3 L RDW 13.6 13.6 Plt Count 156 161 MPV 11.3 H 11.2 H Absolute Neuts (auto) 9.5 H Neutrophils % 75.6 Lymphocytes % 13.3 Monocytes % 10.8 H Eosinophils % 0.1 Basophils % 0.2 Nucleated RBC % 0 Sodium 142 Potassium 4.6 Chloride 106 Carbon Dioxide 29 Anion Gap 7 L BUN 11.4 Creatinine 1.3 Est GFR (CKD-EPI)AfAm 46.15 Est GFR (CKD-EPI)NonAf 39.82 POC Glucometer Random Glucose 227 H Calcium 8.6 Phosphorus 3.6 Magnesium 1.6 L Total Bilirubin 0.7 AST 29 ALT 45 Alkaline Phosphatase 64 Total Protein 5.1 L Albumin 2.8 L 09/17/19 09/17/19 06:10 11:43 WBC RBC Hgb Hct MCV MCH MCHC RDW Plt Count MPV Absolute Neuts (auto) Neutrophils % Lymphocytes % Monocytes % Eosinophils % Basophils % Nucleated RBC % Sodium Potassium Chloride Carbon Dioxide Anion Gap BUN Creatinine Est GFR (CKD-EPI)AfAm Est GFR (CKD-EPI)NonAf POC Glucometer 212 229 Random Glucose Calcium Phosphorus Magnesium Total Bilirubin AST ALT Alkaline Phosphatase Total Protein Albumin Active Medications Generic Name Dose Route Start Last Admin Trade Name Freq PRN Reason Stop Dose Admin Acetaminophen 650 mg 09/16/19 14:00 09/17/19 13:34 Tylenol - PO 650 mg Q6H [facility] Administration Albuterol/Ipratropium 1 amp 09/16/19 23:07 09/17/19 04:51 Duoneb - NEB 1 amp Q4H PRN Administration SHORTNESS OF BREATH Aspirin 81 mg 09/18/19 10:00 Ecotrin - PO BID [facility] Atorvastatin Calcium 20 mg 09/16/19 22:00 09/16/19 21:00 Lipitor - PO 20 mg HS [facility] Administration Chlorhexidine Gluconate 1 applic 09/16/19 22:00 09/16/19 21:01 Hibiclens For Decolonization - TP 1 applic HS [facility] Administration Diphenhydramine HCl 25 mg 09/16/19 13:45 Benadryl - PO Q6H PRN FOR ITCHING Diphenhydramine HCl 25 mg 09/16/19 13:51 Benadryl Injection - IVPUSH ONCE PRN FOR ITCHING Docusate Sodium 100 mg 09/16/19 14:00 09/17/19 13:34 Colace - PO 100 mg TID [facility] Administration Fentanyl 50 mcg 09/16/19 13:46 09/16/19 15:30 Sublimaze Injection - IVPUSH 25 mcg [id number] PRN Administration PAIN-PACU ORDER X 4 DOSES ONLY Ferrous Sulfate 325 mg 09/17/19 10:00 09/17/19 09:42 Feosol - PO 325 mg DAILY [facility] Administration Folic Acid 1 mg 09/17/19 10:00 09/17/19 09:42 Folic Acid - PO 1 mg DAILY [facility] Administration Lactated Ringer's 1,000 ml in 1,000 mls @ 100 mls/hr 09/16/19 13:45 09/17/19 13:52 Lactated Ringers Solution IV Not Given ASDIR [facility] Insulin Aspart 1 vial 09/17/19 07:00 09/17/19 11:48 Novolog Vial Sliding Scale - SQ 4 units ACHS [facility] Administration Protocol Insulin Detemir 5 units 09/17/19 22:00 Levemir Vial SQ HS [facility] Morphine Sulfate 2 mg 09/16/19 13:51 Morphine Sulfate IVPUSH Q3H PRN Severe Pain 7-10 Mupirocin 1 applic 09/16/19 22:00 09/17/19 09:44 Bactroban Ointment (For Decolonization) - NS 09/21/19 21:59 1 applic BID [facility] Administration Naloxone HCl 0.4 mg 09/16/19 13:51 Narcan - IVPUSH ONCE PRN Sedation Ondansetron HCl 4 mg 09/16/19 13:46 09/16/19 21:30 Zofran Injection IVPUSH 4 mg Q6H PRN Administration NAUSEA AND/OR VOMITING Ondansetron HCl 4 mg 09/16/19 13:45 Zofran Injection IVPUSH Q6H PRN NAUSEA Ondansetron HCl 4 mg 09/16/19 13:51 Zofran Injection IVPUSH ONCE PRN NAUSEA Oxycodone HCl 5 mg 09/16/19 13:51 Roxicodone - PO Q3H PRN Mild Pain 1-3 Oxycodone HCl 10 mg 09/16/19 13:51 Roxicodone - PO Q3H PRN Moderate Pain 4-6 Oxycodone HCl 10 mg 09/17/19 13:51 09/17/19 12:54 Oxycontin - PO 10 mg BID [facility] Administration Pantoprazole Sodium 40 mg 09/17/19 10:00 09/17/19 09:42 Protonix - PO 40 mg DAILY [facility] Administration Ramipril 5 mg 09/17/19 10:00 09/17/19 09:42 Altace - PO Not Given DAILY [facility] Ranolazine 500 mg 09/16/19 22:00 09/17/19 09:43 Ranexa - PO 500 mg BID [facility] Administration ASSESSMENT/PLAN: 78 y/o/f with PMHx of HTN, HLD, DM, CAD, and asthma. She presented for elective surgery for spinal fusion, and is POD#0 for exploration and revision of L1-S1 decompression and fusion, removal of hardware, T12-L1 laminectomy/decompression , and T11-S1 fusion. POD#1 #Post-op care - Symptom control with PRN Zofran, oxycodone, fentanyl, diphenhydramine, morphine - Incentive spirometery encouraged, wean O2 requirements to room air - Ancef and Vancomycin discontinued - Tissue cx pending, negative to date - 2 units PRBC cross matched, not given yet - Hgb at 9.6, continue to monitor #Hx of DM - BGM - ISS - Levemir 5mg QHS started #HTN - Ramipril restarted #HLD - Atorvastatin restarted #FEN - IVF discontinued - Mg repleted - Monitor and replete lytes as needed - Sodium/Diabetic diet #Prophylaxis - SCDs - Protonix #Disposition - continue to monitor in ICU, Dr. Enriquez to see patient for right buttocks numbness Visit type - Emergency Visit Emergency Visit: Yes ED Registration Date: 09/16/19 Care time: The patient presented to the Emergency Department on the above date and was hospitalized for further evaluation of their emergent condition. - New Patient This patient is new to me today: No - Critical Care Critical Care patient: No ATTENDING PHYSICIAN STATEMENT I saw and evaluated the patient. I reviewed the resident's note and discussed the case with the resident. I agree with the resident's findings and plan as documented. SUBJECTIVE: OBJECTIVE: ASSESSMENT AND PLAN:
[2019-09-17] MEDS ORDERED: MAGNESIUM SULF 50% (8.12 MEQ/2 ML-1 GM VIAL) ONE (16:07)
[2019-09-17] MEDS: oxyCODONE HCL 5 MG TABLET PO PRN (17:11)
[2019-09-17] MEDS: ATORVASTATIN CA 20 MG TABLET (FP) PO SCH (21:22)
[2019-09-17] MEDS: CHLORHEXIDINE GLUCONATE 4% CLEANSER FOR DECOLONIZATION TP SCH (21:22)
[2019-09-17] MEDS ORDERED: INSULIN (LEVEMIR) 100 UNITS/ML UNITS SQ SCH (22:00)
[2019-09-18] MEDS: ACETAMINOPHEN 325 MG TABLET (FP) PO SCH ×4 (02:03→20:16)
[2019-09-18] MEDS: DOCUSATE SODIUM 100 MG CAPSULE (FP) PO SCH ×3 (05:42→22:38)
[2019-09-18] MEDS: INSULIN SLIDING SCALE (NOVOLOG) 1 VIAL SQ SCH ×4 (06:14→22:41)
[2019-09-18 06:30] LABS: BASO % 0.3 % (0-2.0); EOS % 0.5 % (0-4.5); HEMATOCRIT 28.8 % (32.4-45.2); HEMOGLOBIN 9.2 GM/dL (10.7-15.3); LYMPH % 12.8 % (8-40); MCH 26.4 pg (25.7-33.7); MCHC 31.9 g/dl (32.0-36.0); MEAN CELL VOLUME 82.8 fl (80-96); MEAN PLT VOLUME 10.6 fl (7.5-11.1); MONO % 12.2 % (3.8-10.2); NEUT % 74.2 % (42.8-82.8); PLATELET COUNT 147 K/MM3 (134-434); RBC 3.48 M/mm3 (3.60-5.2); RDW 13.5 % (11.6-15.6); WHITE BLOOD COUNT 11.5 K/mm3 (4.0-10.0)
[2019-09-18 07:06] LABS: BLOOD UREA NITROGEN 8.1 mg/dL (7-18); CALCIUM 8.3 mg/dL (8.5-10.1); CREATININE 0.9 mg/dL (0.55-1.3); MAGNESIUM 2.1 mg/dL (1.8-2.4); POTASSIUM 4.9 mmol/L (3.5-5.1)
--- NOTE | 2019-09-18 08:40 | PN ---
Teaching Attending Note Name of Resident: Jami Husain ATTENDING PHYSICIAN STATEMENT I saw and evaluated the patient. I reviewed the resident's note and discussed the case with the resident. I agree with the resident's findings and plan as documented. Seen and examined; please see resident note for further historical information. I personally verified all whitten historical information and exam findings. Personally interpreted all imaging and diagnostics and reviewed appropriate consults. I reviewed all labs and vital signs as per resident note and EMR as documented. I agree with the above assessment and plan unless supplemented by myself in the following. Seen and examined, no acute events reported overnight. Pending transfer from ICU POD#2 10 item review of systems completed and is negative aside from as discussed in the subjective data in my own/the resident documentation. VS, labs, imaging reviewed NAD, AAO, resting comfortably in bed. RRR s1/2 no mgr Normal muscle tone, moves all 5 extremities with normal apparent strength Neck is supple, trachea midline, no kasi LN Lungs CTAB with sym expansion NT ND +BS no kasi organomegaly CN2-12 wnl; no FND NC AT EOMI PERRLA Normal mood, appropriate behavior, euthymic affect No skin breakdown or rashes noted Assessment and plan: Patient is a 78-year-old female with a history of hypertension hyperlipidemia coronary artery disease diabetes asthma status post multiple spine surgeries presenting with elective spine revision with radicular neuropathic pain being present as an outpatient. The procedure is elective. She underwent exploration and revision of L1-S1 decompression with fusion removal of hardware and T12-L1 appendectomy and decompression with T11-S1 fusion. POD#2 with no immediate postoperative complications. Problems include: Buttock numbness; chronic with no new imaging per surgical service. S/P Lumbar sgy; DC planning. Mgmt per ortho. Hypertension, continue Altace Hyperlipidemia, continue statin Coronary artery disease, continue Ranexa. On home statin, not on home aspirin. Should address with primary care. Diabetes mellitus type 2, holding semaglutide metformin and glimepiride and placing on sliding scale throughout her time here. 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 Will be potential impotence to surgical wound healing. Full Code
--- NOTE | 2019-09-18 08:50 | PN ---
Progress Note (short form) - Note Progress Note: ORTHOPAEDIC SPINE SURGERY POD #2 No acute events per RN notes. Alert. Met patient while she was ambulating back from bathroom. Kim dc'd this morning and still in trial of void. C/o that she feels constipated as well as incisional pain adequately managed with medications ordered. Denies CP, palpitations, SOB, GONZALEZ, parasthesias Last Vital Signs Temp Pulse Resp BP Pulse Ox 98.4 F 88 14 115/66 95 09/18/19 06:00 09/18/19 07:52 09/18/19 07:42 09/18/19 07:42 09/18/19 07:20 CBC, BMP 09/18/19 05:25 09/18/19 05:25 GEN: nad Lumbar: dressing c/d/i. LE: SCDs bilat. No swelling/edema. Palpable. Warm. Neuro: GMNVI Problem List - Problems (1) H/O lumbosacral spine surgery Assessment/Plan: POD #2 s/p Exploration and revision of L1-S1 decompression and fusion, removal of hardware, T12-L1 laminectomy/decompression and T11-S1 fusion - Pain management - OOB and ambulate with PT - Incentive Spirometer - Zofran for nausea - Neurochecks - DVT PPx: ASA 81 mg BID and SCD/TEDs - Tight glycemic control - Sodium controlled/Diabetic diet - Monitor/record drain output - DC planning Above plan discussed with Dr. Jah Enriquez and agrees Code(s): Z98.890 - OTHER SPECIFIED POSTPROCEDURAL STATES (2) HTN (hypertension) Code(s): I10 - ESSENTIAL (PRIMARY) HYPERTENSION (3) HLD (hyperlipidemia) Code(s): E78.5 - HYPERLIPIDEMIA, UNSPECIFIED (4) Diabetes mellitus Code(s): E11.9 - TYPE 2 DIABETES MELLITUS WITHOUT COMPLICATIONS (5) CAD (coronary artery disease) Code(s): I25.10 - ATHSCL HEART DISEASE OF [place] CORONARY ARTERY W/O ANG PCTRS
--- NOTE | 2019-09-18 08:51 | PN ---
Physical Exam: SUBJECTIVE: Patient seen and examined. She has passed gas but has not had a bowel movement yet. She states the numbness over her right buttocks has improved. She has been able to walk to the bathroom and back. States that pain is controlled. Denies chest pain, abd pain, SOB, fever, chills. OBJECTIVE: Vital Signs Period Temp Pulse Resp BP Sys/Peña Pulse Ox Last 24 Hr 97.7 F-98.8 F 81-94 11-18 99-144/47-79 95-99 GENERAL: The patient is awake, alert, and fully oriented, in no acute distress. HEAD: Normal with no signs of trauma. EYES: EOMI ENT: MMM NECK: Trachea midline, full range of motion, supple. LUNGS: Breath sounds equal, clear to auscultation bilaterally, no wheezes, no crackles, no accessory muscle use. HEART: RRR, no murmur noted ABDOMEN: Soft, nontender, nondistended, normoactive bowel sounds, no guarding EXTREMITIES: 2+ pulses, warm, well-perfused, no edema. NEUROLOGICAL: Normal speech, gait not observed. 5/5 strength upper and lower extremities. PSYCH: Normal mood, normal affect. SKIN: Warm, dry. surgical dressing in place over back, clean, dry, intact Laboratory Results - last 24 hr 09/16/19 09/17/19 09/17/19 06:26 11:43 16:23 WBC RBC Hgb Hct MCV MCH MCHC RDW Plt Count MPV Absolute Neuts (auto) Neutrophils % Lymphocytes % Monocytes % Eosinophils % Basophils % Nucleated RBC % Sodium Potassium Chloride Carbon Dioxide Anion Gap BUN Creatinine Est GFR (CKD-EPI)AfAm Est GFR (CKD-EPI)NonAf POC Glucometer 229 231 Random Glucose Calcium Phosphorus Magnesium Crossmatch See Detail 09/17/19 09/18/19 09/18/19 21:34 05:25 05:25 WBC 11.5 H RBC 3.48 L Hgb 9.2 L Hct 28.8 L MCV 82.8 MCH 26.4 MCHC 31.9 L RDW 13.5 Plt Count 147 MPV 10.6 Absolute Neuts (auto) 8.5 H Neutrophils % 74.2 Lymphocytes % 12.8 Monocytes % 12.2 H Eosinophils % 0.5 D Basophils % 0.3 Nucleated RBC % 0 Sodium 140 Potassium 4.9 Chloride 105 Carbon Dioxide 29 Anion Gap 7 L BUN 8.1 Creatinine 0.9 Est GFR (CKD-EPI)AfAm 71.98 Est GFR (CKD-EPI)NonAf 62.11 POC Glucometer 329 Random Glucose 232 H Calcium 8.3 L Phosphorus 3.0 Magnesium 2.1 Crossmatch 09/18/19 06:12 WBC RBC Hgb Hct MCV MCH MCHC RDW Plt Count MPV Absolute Neuts (auto) Neutrophils % Lymphocytes % Monocytes % Eosinophils % Basophils % Nucleated RBC % Sodium Potassium Chloride Carbon Dioxide Anion Gap BUN Creatinine Est GFR (CKD-EPI)AfAm Est GFR (CKD-EPI)NonAf POC Glucometer 227 Random Glucose Calcium Phosphorus Magnesium Crossmatch Active Medications Generic Name Dose Route Start Last Admin Trade Name Freq PRN Reason Stop Dose Admin Acetaminophen 650 mg 09/16/19 14:00 09/18/19 08:03 Tylenol - PO 650 mg Q6H [facility] Administration Albuterol/Ipratropium 1 amp 09/16/19 23:07 09/17/19 21:05 Duoneb - NEB 1 amp Q4H PRN Administration SHORTNESS OF BREATH Aspirin 81 mg 09/18/19 10:00 Ecotrin - PO BID [facility] Atorvastatin Calcium 20 mg 09/16/19 22:00 09/17/19 21:22 Lipitor - PO 20 mg HS [facility] Administration Chlorhexidine Gluconate 1 applic 09/16/19 22:00 09/17/19 21:22 Hibiclens For Decolonization - TP 1 applic HS [facility] Administration Diphenhydramine HCl 25 mg 09/16/19 13:45 Benadryl - PO Q6H PRN FOR ITCHING Diphenhydramine HCl 25 mg 09/16/19 13:51 Benadryl Injection - IVPUSH ONCE PRN FOR ITCHING Docusate Sodium 100 mg 09/16/19 14:00 09/18/19 05:42 Colace - PO 100 mg TID [facility] Administration Fentanyl 50 mcg 09/16/19 13:46 09/16/19 15:30 Sublimaze Injection - IVPUSH 25 mcg [id number] PRN Administration PAIN-PACU ORDER X 4 DOSES ONLY Ferrous Sulfate 325 mg 09/17/19 10:00 09/17/19 09:42 Feosol - PO 325 mg DAILY [facility] Administration Folic Acid 1 mg 09/17/19 10:00 09/17/19 09:42 Folic Acid - PO 1 mg DAILY [facility] Administration Insulin Aspart 1 vial 09/17/19 07:00 09/18/19 06:14 Novolog Vial Sliding Scale - SQ 4 units ACHS [facility] Administration Protocol Insulin Detemir 5 units 09/17/19 22:00 09/17/19 21:37 Levemir Vial SQ 5 units HS [facility] Administration Morphine Sulfate 2 mg 09/16/19 13:51 Morphine Sulfate IVPUSH Q3H PRN Severe Pain 7-10 Mupirocin 1 applic 09/16/19 22:00 09/17/19 21:22 Bactroban Ointment (For Decolonization) - NS 09/21/19 21:59 1 applic BID [facility] Administration Naloxone HCl 0.4 mg 09/16/19 13:51 Narcan - IVPUSH ONCE PRN Sedation Ondansetron HCl 4 mg 09/16/19 13:46 09/16/19 21:30 Zofran Injection IVPUSH 4 mg Q6H PRN Administration NAUSEA AND/OR VOMITING Ondansetron HCl 4 mg 09/16/19 13:45 Zofran Injection IVPUSH Q6H PRN NAUSEA Ondansetron HCl 4 mg 09/16/19 13:51 Zofran Injection IVPUSH ONCE PRN NAUSEA Oxycodone HCl 5 mg 09/16/19 13:51 Roxicodone - PO Q3H PRN Mild Pain 1-3 Oxycodone HCl 10 mg 09/16/19 13:51 09/17/19 17:11 Roxicodone - PO 10 mg Q3H PRN Administration Moderate Pain 4-6 Oxycodone HCl 10 mg 09/17/19 13:51 09/17/19 21:27 Oxycontin - PO 10 mg BID [facility] Administration Pantoprazole Sodium 40 mg 09/17/19 10:00 09/17/19 09:42 Protonix - PO 40 mg DAILY [facility] Administration Ramipril 5 mg 09/17/19 10:00 09/17/19 09:42 Altace - PO Not Given DAILY [facility] Ranolazine 500 mg 09/16/19 22:00 09/17/19 21:23 Ranexa - PO 500 mg BID [facility] Administration ASSESSMENT/PLAN: 78 y/o/f with PMHx of HTN, HLD, DM, CAD, and asthma. She presented for elective surgery for spinal fusion, and is POD#2 for exploration and revision of L1-S1 decompression and fusion, removal of hardware, T12-L1 laminectomy/decompression , and T11-S1 fusion. #Post-op care - Symptom control with PRN Zofran, oxycodone, fentanyl, diphenhydramine, morphine - Incentive spirometery encouraged, wean O2 requirements to room air - Ancef and Vancomycin discontinued - Tissue cx pending, negative to date - 2 units PRBC cross matched, not given yet - Hgb at 9.2, continue to monitor #Hx of DM - BGM - ISS - Levemir increased to 10mg HS #HTN - Ramipril #HLD - Atorvastatin #FEN - IVF discontinued - Monitor and replete lytes as needed - Sodium/Diabetic diet #Prophylaxis - SCDs - Protonix #Disposition - patient being followed by surgery PA, can transfer to floors Visit type - Emergency Visit Emergency Visit: No - New Patient This patient is new to me today: No - Critical Care Critical Care patient: Yes Total Critical Care Time (in minutes): 36 Critical Care Statement: The care of this patient involved high complexity decision making to prevent further life threatening deterioration of the patient 's condition and/or to evaluate & treat vital organ system(s) failure or risk of failure. ATTENDING PHYSICIAN STATEMENT I saw and evaluated the patient. I reviewed the resident's note and discussed the case with the resident. I agree with the resident's findings and plan as documented. SUBJECTIVE: OBJECTIVE: ASSESSMENT AND PLAN:
[2019-09-18] MEDS: oxyCODONE HCL 10 MG SUSTAINED ACTING TABLET PO SCH ×2 (09:10→22:42)
[2019-09-18] MEDS: RAMIPRIL 5 MG CAPSULE (FP) PO SCH (09:11)
[2019-09-18] MEDS: RANOLAZINE E.R. 500 MG TABLET (FP) PO SCH ×2 (09:11→22:38)
[2019-09-18] MEDS: FOLIC ACID 1 MG TABLET (FP) PO SCH (09:11)
[2019-09-18] MEDS: FERROUS SO4 325 MG TABLET (FP) PO SCH (09:11)
[2019-09-18] MEDS: PANTOPRAZOLE 40 MG TABLET PO SCH (09:11)
[2019-09-18] MEDS ORDERED: ASPIRIN COATED 81 MG TABLET.EC PO SCH (10:00)
[2019-09-18] MEDS: MUPIROCIN 2% TOPICAL OINTMENT FOR DECOLONIZATION NS SCH (10:49)
--- NOTE | 2019-09-18 12:01 | PN ---
Teaching Attending Note Name of Resident: Nayla Obrien ATTENDING PHYSICIAN STATEMENT I saw and evaluated the patient. I reviewed the resident's note and discussed the case with the resident. I agree with the resident's findings and plan as documented. SUBJECTIVE: Pt seen and examined in the ICU. Pain better today. +flatus. No fevers or chills. OBJECTIVE: Vital Signs Period Temp Pulse Resp BP Sys/Peña Pulse Ox Last 24 Hr 97.7 F-98.8 F 81-94 11-18 99-144/47-79 95-99 Intake & Output 09/15/19 09/16/19 09/17/19 09/18/19 23:59 23:59 23:59 23:59 Intake Total 2125 2469 500 Output Total 1470 1390 1895 Balance 655 1079 -1395 Gen: NAD in chair Heart: RRR Lung: decreased breath sounds at the bases Abd: soft, nontender Ext: no edema CBC, BMP 09/18/19 05:25 09/18/19 05:25 Active Medications Acetaminophen (Tylenol -) 650 mg PO Q6H [facility] Last Admin: 09/18/19 08:03 Dose: 650 mg Albuterol/Ipratropium (Duoneb -) 1 amp NEB Q4H PRN PRN Reason: SHORTNESS OF BREATH Last Admin: 09/17/19 21:05 Dose: 1 amp Aspirin (Ecotrin -) 81 mg PO BID [facility] Last Admin: 09/18/19 09:10 Dose: 81 mg Atorvastatin Calcium (Lipitor -) 20 mg PO [facility] Last Admin: 09/17/19 21:22 Dose: 20 mg Chlorhexidine Gluconate (Hibiclens For Decolonization -) 1 applic TP [facility] Last Admin: 09/17/19 21:22 Dose: 1 applic Diphenhydramine HCl (Benadryl -) 25 mg PO Q6H PRN PRN Reason: FOR ITCHING Diphenhydramine HCl (Benadryl Injection -) 25 mg IVPUSH ONCE PRN PRN Reason: FOR ITCHING Docusate Sodium (Colace -) 100 mg PO TID [facility] Last Admin: 09/18/19 05:42 Dose: 100 mg Fentanyl (Sublimaze Injection -) 50 mcg IVPUSH [id number] PRN PRN Reason: PAIN-PACU ORDER X 4 DOSES ONLY Last Admin: 09/16/19 15:30 Dose: 25 mcg Ferrous Sulfate (Feosol -) 325 mg PO DAILY [facility] Last Admin: 09/18/19 09:11 Dose: 325 mg Folic Acid (Folic Acid -) 1 mg PO DAILY [facility] Last Admin: 09/18/19 09:11 Dose: 1 mg Insulin Aspart (Novolog Vial Sliding Scale -) 1 vial SQ [facility]; Protocol Last Admin: 09/18/19 10:47 Dose: 6 units Insulin Detemir (Levemir Vial) 10 units SQ [facility] Morphine Sulfate (Morphine Sulfate) 2 mg IVPUSH Q3H PRN PRN Reason: Severe Pain 7-10 Mupirocin (Bactroban Ointment (For Decolonization) -) 1 applic NS BID [facility] Stop: 09/21/19 21:59 Last Admin: 09/18/19 10:49 Dose: 1 applic Naloxone HCl (Narcan -) 0.4 mg IVPUSH ONCE PRN PRN Reason: Sedation Ondansetron HCl (Zofran Injection) 4 mg IVPUSH Q6H PRN PRN Reason: NAUSEA AND/OR VOMITING Last Admin: 09/16/19 21:30 Dose: 4 mg Ondansetron HCl (Zofran Injection) 4 mg IVPUSH Q6H PRN PRN Reason: NAUSEA Ondansetron HCl (Zofran Injection) 4 mg IVPUSH ONCE PRN PRN Reason: NAUSEA Oxycodone HCl (Roxicodone -) 5 mg PO Q3H PRN PRN Reason: Mild Pain 1-3 Oxycodone HCl (Roxicodone -) 10 mg PO Q3H PRN PRN Reason: Moderate Pain 4-6 Last Admin: 09/17/19 17:11 Dose: 10 mg Oxycodone HCl (Oxycontin -) 10 mg PO BID [facility] Last Admin: 09/18/19 09:10 Dose: 10 mg Pantoprazole Sodium (Protonix -) 40 mg PO DAILY [facility] Last Admin: 09/18/19 09:11 Dose: 40 mg Ramipril (Altace -) 5 mg PO DAILY [facility] Last Admin: 09/18/19 09:11 Dose: 5 mg Ranolazine (Ranexa -) 500 mg PO BID [facility] Last Admin: 09/18/19 09:11 Dose: 500 mg ASSESSMENT AND PLAN: Lumbar Spinal Stenosis/Failed Fusion s/p exploration/revision L1-S1/STEVEN/T12/L1 Laminectomy/Decompresion/T11-S1 Fusin CAD HTN DM Hyperlipidemia - pain control - incentive spirometry - PO as tolerated - monitor drain output - antiemetics - PT - DVT prophylaxis - can monitor on floor
[2019-09-18] MEDS ORDERED: POLYETHYLENE GLYCOL 3350 119 GM BTL PO ONE (12:57)
--- NOTE | 2019-09-18 13:18 | PATH ---
Surgical Pathology Report Patient Name: ANAIS NICOLE Med. Rec. 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 Specimen(s) Received REMOVED HARDWARE Clinical History T12-S1 stenosis, failed fusion Final Diagnosis HARDWARE, T11-S1, REMOVAL: SURGICAL HARDWARE. MACROSCOPIC DIAGNOSIS. Electronically Signed Danielle Cazares M.D. Gross Description Received fresh labeled "removed hardware," are 2 gomez metallic, bent rods averaging 14 cm in greatest dimension. Also received within the same container are 2 metallic clamp-like structures measuring 5.4 and 6.2 cm in greatest dimension. There are 24 metallic screws ranging from 0.4-6.0 cm in greatest dimension also received within the same container. No soft tissue is present. No sections are submitted, gross only. 09/17/2019 [facility]09/17/2019
--- NOTE | 2019-09-18 15:21 | PN ---
Physical Exam: SUBJECTIVE: Patient seen and examined. No acute overnight events. Pt states the R gluteal numbness has improved. OBJECTIVE: Vital Signs Period Temp Pulse Resp BP Sys/Peña Pulse Ox Last 24 Hr 97.9 F-98.8 F 81-94 11-18 99-144/48-79 95-99 GENERAL: The patient is awake, alert, and fully oriented, in no acute distress. LUNGS: Breath sounds equal, clear to auscultation bilaterally HEART: Regular rate and rhythm, S1, S2 no mrg ABDOMEN: Soft, nontender, nondistended, normoactive bowel sounds EXTREMITIES: 2+ pulses, warm, well-perfused, no edema. NEUROLOGICAL: Cranial nerves II through XII grossly intact. PSYCH: Normal mood, normal affect. SKIN: back dressing in place c/d/i no signs of infection, surgical drain in place w/ bloody drainage Laboratory Results - last 24 hr 09/16/19 09/17/19 09/17/19 06:26 16:23 21:34 WBC RBC Hgb Hct MCV MCH MCHC RDW Plt Count MPV Absolute Neuts (auto) Neutrophils % Lymphocytes % Monocytes % Eosinophils % Basophils % Nucleated RBC % Sodium Potassium Chloride Carbon Dioxide Anion Gap BUN Creatinine Est GFR (CKD-EPI)AfAm Est GFR (CKD-EPI)NonAf POC Glucometer 231 329 Random Glucose Calcium Phosphorus Magnesium Crossmatch See Detail 09/18/19 09/18/19 09/18/19 05:25 05:25 06:12 WBC 11.5 H RBC 3.48 L Hgb 9.2 L Hct 28.8 L MCV 82.8 MCH 26.4 MCHC 31.9 L RDW 13.5 Plt Count 147 MPV 10.6 Absolute Neuts (auto) 8.5 H Neutrophils % 74.2 Lymphocytes % 12.8 Monocytes % 12.2 H Eosinophils % 0.5 D Basophils % 0.3 Nucleated RBC % 0 Sodium 140 Potassium 4.9 Chloride 105 Carbon Dioxide 29 Anion Gap 7 L BUN 8.1 Creatinine 0.9 Est GFR (CKD-EPI)AfAm 71.98 Est GFR (CKD-EPI)NonAf 62.11 POC Glucometer 227 Random Glucose 232 H Calcium 8.3 L Phosphorus 3.0 Magnesium 2.1 Crossmatch 09/18/19 10:44 WBC RBC Hgb Hct MCV MCH MCHC RDW Plt Count MPV Absolute Neuts (auto) Neutrophils % Lymphocytes % Monocytes % Eosinophils % Basophils % Nucleated RBC % Sodium Potassium Chloride Carbon Dioxide Anion Gap BUN Creatinine Est GFR (CKD-EPI)AfAm Est GFR (CKD-EPI)NonAf POC Glucometer 288 Random Glucose Calcium Phosphorus Magnesium Crossmatch Active Medications Current Medications Acetaminophen (Tylenol -) 650 mg PO Q6H [facility] Last Admin: 09/18/19 13:00 Dose: 650 mg Albuterol/Ipratropium (Duoneb -) 1 amp NEB Q4H PRN PRN Reason: SHORTNESS OF BREATH Last Admin: 09/17/19 21:05 Dose: 1 amp Aspirin (Ecotrin -) 81 mg PO BID [facility] Last Admin: 09/18/19 09:10 Dose: 81 mg Atorvastatin Calcium (Lipitor -) 20 mg PO HS [facility] Last Admin: 09/17/19 21:22 Dose: 20 mg Chlorhexidine Gluconate (Hibiclens For Decolonization -) 1 applic TP [facility] Last Admin: 09/17/19 21:22 Dose: 1 applic Diphenhydramine HCl (Benadryl -) 25 mg PO Q6H PRN PRN Reason: FOR ITCHING Diphenhydramine HCl (Benadryl Injection -) 25 mg IVPUSH ONCE PRN PRN Reason: FOR ITCHING Docusate Sodium (Colace -) 100 mg PO TID [facility] Last Admin: 09/18/19 13:00 Dose: 100 mg Fentanyl (Sublimaze Injection -) 50 mcg IVPUSH [id number] PRN PRN Reason: PAIN-PACU ORDER X 4 DOSES ONLY Last Admin: 09/16/19 15:30 Dose: 25 mcg Ferrous Sulfate (Feosol -) 325 mg PO DAILY [facility] Last Admin: 09/18/19 09:11 Dose: 325 mg Folic Acid (Folic Acid -) 1 mg PO DAILY [facility] Last Admin: 09/18/19 09:11 Dose: 1 mg Insulin Aspart (Novolog Vial Sliding Scale -) 1 vial SQ [facility]; Protocol Last Admin: 09/18/19 10:47 Dose: 6 units Insulin Detemir (Levemir Vial) 10 units SQ [facility] Morphine Sulfate (Morphine Sulfate) 2 mg IVPUSH Q3H PRN PRN Reason: Severe Pain 7-10 Mupirocin (Bactroban Ointment (For Decolonization) -) 1 applic NS BID [facility] Stop: 09/21/19 21:59 Last Admin: 09/18/19 10:49 Dose: 1 applic Naloxone HCl (Narcan -) 0.4 mg IVPUSH ONCE PRN PRN Reason: Sedation Ondansetron HCl (Zofran Injection) 4 mg IVPUSH Q6H PRN PRN Reason: NAUSEA AND/OR VOMITING Last Admin: 09/16/19 21:30 Dose: 4 mg Ondansetron HCl (Zofran Injection) 4 mg IVPUSH Q6H PRN PRN Reason: NAUSEA Ondansetron HCl (Zofran Injection) 4 mg IVPUSH ONCE PRN PRN Reason: NAUSEA Oxycodone HCl (Roxicodone -) 5 mg PO Q3H PRN PRN Reason: Mild Pain 1-3 Oxycodone HCl (Roxicodone -) 10 mg PO Q3H PRN PRN Reason: Moderate Pain 4-6 Last Admin: 09/17/19 17:11 Dose: 10 mg Oxycodone HCl (Oxycontin -) 10 mg PO BID [facility] Last Admin: 09/18/19 09:10 Dose: 10 mg Pantoprazole Sodium (Protonix -) 40 mg PO DAILY [facility] Last Admin: 09/18/19 09:11 Dose: 40 mg Ramipril (Altace -) 5 mg PO DAILY [facility] Last Admin: 09/18/19 09:11 Dose: 5 mg Ranolazine (Ranexa -) 500 mg PO BID [facility] Last Admin: 09/18/19 09:11 Dose: 500 mg ASSESSMENT/PLAN: 78 y.o. F PMH HTN, HLD, DM, CAD, and asthma. POD#1 s/p exploration and revision of L1-S1 decompression and fusion, removal of hardware, T12-L1 laminectomy/decompression, and T11-S1 fusion. 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 -PRN Zofran, oxycodone, fentanyl, diphenhydramine, morphine for pain control -continue physical therapy #CV -Hx HTN -continue home ramipril 5mg #Pulm -incentive spirometer q15min -duonebs prn -no acute issues saturating well on RA #ID -Ancef 2x and Vanco 1x given pre-op -f/u tissue cultures -afebrile -no acute issues continue to monitor #GI -protonix 40mg daily #Endo -hx of DM -BGM ISS ACHS #FENLTD -no standing fluids -trend lytes replete prn -na controlled/ diabetic diet #DVT -SCDs -protonix -OOBTC, continue physical therapy #Dispo can monitor on med surg floor Visit type - Emergency Visit Emergency Visit: No - New Patient This patient is new to me today: No - Critical Care Critical Care patient: Yes Total Critical Care Time (in minutes): 45 Critical Care Statement: The care of this patient involved high complexity decision making to prevent further life threatening deterioration of the patient's condition and/or to evaluate & treat vital organ system(s) failure or risk of failure. ATTENDING PHYSICIAN STATEMENT I saw and evaluated the patient. I reviewed the resident's note and discussed the case with the resident. I agree with the resident's findings and plan as documented. SUBJECTIVE: OBJECTIVE: ASSESSMENT AND PLAN:
[2019-09-18] MEDS ORDERED: ALBUTEROL SO4 2.5/IPRATROPIUM 0.5 INH SOL 3 ML VIAL.NEB. NEB PRN (15:29)
[2019-09-18] MEDS ORDERED: MORPHINE SULFATE 2 MG/ML VIAL IVPUSH PRN (15:29)
[2019-09-18] MEDS ORDERED: NALOXONE HCL 0.4 MG/ML VIAL IVPUSH PRN (15:29)
[2019-09-18] MEDS ORDERED: oxyCODONE HCL 5 MG TABLET PO PRN ×2 (15:29)
[2019-09-18] MEDS ORDERED: diphenhydrAMINE HCL 25 MG CAPSULE (FP) PO PRN (15:29)
[2019-09-18] MEDS ORDERED: ONDANSETRON 4 MG/2 ML VIAL IVPUSH PRN ×3 (15:29)
[2019-09-18] MEDS ORDERED: CHLORHEXIDINE GLUCONATE 4% CLEANSER FOR DECOLONIZATION TP SCH (22:00)
[2019-09-18] MEDS ORDERED: INSULIN (LEVEMIR) 100 UNITS/ML UNITS SQ SCH (22:00)
[2019-09-18] MEDS ORDERED: ATORVASTATIN CA 20 MG TABLET (FP) PO SCH (22:00)
[2019-09-18] MEDS ORDERED: MUPIROCIN 2% TOPICAL OINTMENT FOR DECOLONIZATION NS SCH (22:00)
[2019-09-18] MEDS: ASPIRIN COATED 81 MG TABLET.EC PO SCH (22:39)
[2019-09-18] MEDS: INSULIN (LEVEMIR) 100 UNITS/ML UNITS SQ SCH (22:39)
[2019-09-19] MEDS: ACETAMINOPHEN 325 MG TABLET (FP) PO SCH ×4 (01:43→21:13)
[2019-09-19] MEDS: INSULIN SLIDING SCALE (NOVOLOG) 1 VIAL SQ SCH ×4 (06:25→21:13)
[2019-09-19] MEDS: DOCUSATE SODIUM 100 MG CAPSULE (FP) PO SCH ×3 (06:26→21:12)
--- NOTE | 2019-09-19 07:28 | PN ---
Progress Note (short form) - Note Progress Note: ORTHOPAEDIC SPINE SURGERY POD #3 Transferred to floor yesterday evening. C/o mild incisional pain. Per RN notes, patient is refusing to take PO Oxycodone. ONLY wants Tylenol for pain management. Patient is Alert. Recovering as expected. Ambulating unassisted. Voiding spontaneously. Denies CP, palpitations, SOB, GONZALEZ, parasthesias Last Vital Signs Temp Pulse Resp BP Pulse Ox 98.3 F 86 20 131/58 L 96 09/19/19 05:00 09/19/19 05:00 09/19/19 05:00 09/19/19 05:00 09/18/19 21:00 Lumbar Drain 09/18/19 09/18/19 09/18/19 09/19/19 06:00 14:12 22:54 05:00 Hemovac 195 90 40 60 PE GEN: nad Lumbar: dressing c/d/i. Drain on suction (serosanguinous) LE: SCDs bilat. No swelling/edema. Palpable. Warm. Neuro: GMNVI Problem List - Problems (1) H/O lumbosacral spine surgery Assessment/Plan: POD #3 s/p Exploration and revision of L1-S1 decompression and fusion, removal of hardware, T12-L1 laminectomy/decompression and T11-S1 fusion - Pain management - OOB and ambulate with PT - Incentive Spirometer - Neurochecks - DVT PPx: ASA 81 mg BID and SCD/TEDs - Tight glycemic control - Sodium controlled/Diabetic diet - Monitor/record drain output - DC planning Above plan discussed with Dr. Jah Enriquez and agrees Code(s): Z98.890 - OTHER SPECIFIED POSTPROCEDURAL STATES (2) HTN (hypertension) Code(s): I10 - ESSENTIAL (PRIMARY) HYPERTENSION (3) HLD (hyperlipidemia) Code(s): E78.5 - HYPERLIPIDEMIA, UNSPECIFIED (4) Diabetes mellitus Code(s): E11.9 - TYPE 2 DIABETES MELLITUS WITHOUT COMPLICATIONS (5) CAD (coronary artery disease) Code(s): I25.10 - ATHSCL HEART DISEASE OF [place] CORONARY ARTERY W/O ANG PCTRS
[2019-09-19 07:51] LABS: HEMATOCRIT 29.2 % (32.4-45.2); HEMOGLOBIN 9.4 GM/dL (10.7-15.3); MCH 26.6 pg (25.7-33.7); MCHC 32.3 g/dl (32.0-36.0); MEAN CELL VOLUME 82.3 fl (80-96); MEAN PLT VOLUME 11.1 fl (7.5-11.1); PLATELET COUNT 173 K/MM3 (134-434); RBC 3.55 M/mm3 (3.60-5.2); RDW 13.4 % (11.6-15.6)
[2019-09-19 08:04] LABS: ALBUMIN 2.7 g/dl (3.4-5.0); BILIRUBIN,TOTAL 1.2 mg/dL (0.2-1); BLOOD UREA NITROGEN 10.5 mg/dL (7-18); CALCIUM 9.1 mg/dL (8.5-10.1); POTASSIUM 5.1 mmol/L (3.5-5.1); TOT PROT 5.6 g/dl (6.4-8.2)
[2019-09-19] MEDS ORDERED: RAMIPRIL 5 MG CAPSULE (FP) PO SCH (10:00)
[2019-09-19] MEDS: PANTOPRAZOLE 40 MG TABLET PO SCH (11:14)
[2019-09-19] MEDS: FERROUS SO4 325 MG TABLET (FP) PO SCH (11:14)
[2019-09-19] MEDS: FOLIC ACID 1 MG TABLET (FP) PO SCH (11:14)
[2019-09-19] MEDS: oxyCODONE HCL 10 MG SUSTAINED ACTING TABLET PO SCH ×2 (11:14→21:13)
[2019-09-19] MEDS: ASPIRIN COATED 81 MG TABLET.EC PO SCH ×2 (11:14→21:13)
[2019-09-19] MEDS: RANOLAZINE E.R. 500 MG TABLET (FP) PO SCH ×2 (11:15→22:06)
--- NOTE | 2019-09-19 12:41 | PN ---
Teaching Attending Note Name of Resident: Jami Husain ATTENDING PHYSICIAN STATEMENT I saw and evaluated the patient. I reviewed the resident's note and discussed the case with the resident. I agree with the resident's findings and plan as documented. Seen and examined; please see resident note for further historical information. I personally verified all whitten historical information and exam findings. Personally interpreted all imaging and diagnostics and reviewed appropriate consults. I reviewed all labs and vital signs as per resident note and EMR as documented. I agree with the above assessment and plan unless supplemented by myself in the following. Pain is controlled, has no new complaints, seen and examined at bedside. Discussed with resident team. Reaching out to Dr. Newotn for further instructions regarding postoperative care management. 10 item review of systems completed and is negative aside from as discussed in the subjective data in my own/the resident documentation. VS, labs, imaging reviewed NAD, AAO, resting comfortably in bed. RRR s1/2 no mgr Normal muscle tone, moves all 5 extremities with normal apparent strength Neck is supple, trachea midline, no kasi LN Lungs CTAB with sym expansion NT ND +BS no kasi organomegaly CN2-12 wnl; no FND NC AT EOMI PERRLA Normal mood, appropriate behavior, euthymic affect No skin breakdown or rashes noted Assessment and plan: Patient is indicated is only wanting Tylenol for pain management. They have refused oxycodone. Surgery recommends out of bed and ambulation with PT along with a set of spirometer and neurovascular checks. Recommended to continue on aspirin 81 mg twice daily and teds for DVT prophylaxis. DC planning has been initiated and we are discussing with the warehouse worker 2nd shift. She can likely go within the next 24 hours if a bed is made available.
--- NOTE | 2019-09-19 14:32 | PN ---
Physical Exam: SUBJECTIVE: Patient seen and examined. No acute events overnight. Patient states she is having bowel movements now. States that pain is well controlled. OBJECTIVE: Vital Signs Period Temp Pulse Resp BP Sys/Peña Pulse Ox Last 24 Hr 97.7 F-98.3 F 78-94 18-20 94-157/50-82 96 GENERAL: The patient is awake, alert, and fully oriented, in no acute distress. HEAD: Normal with no signs of trauma. EYES: EOMI ENT: MMM NECK: Trachea midline, full range of motion, supple. LUNGS: Breath sounds equal, clear to auscultation bilaterally, no wheezes, no crackles, no accessory muscle use. HEART: RRR, no murmur noted ABDOMEN: Soft, nontender, nondistended, normoactive bowel sounds, no guarding EXTREMITIES: 2+ pulses, warm, well-perfused, no edema. NEUROLOGICAL: Normal speech, gait not observed. 5/5 strength upper and lower extremities. PSYCH: Normal mood, normal affect. SKIN: Warm, dry. surgical dressing in place over back, clean, dry, intact Laboratory Results - last 24 hr 09/16/19 09/18/19 09/18/19 06:26 17:13 22:35 WBC RBC Hgb Hct MCV MCH MCHC RDW Plt Count MPV Sodium Potassium Chloride Carbon Dioxide Anion Gap BUN Creatinine Est GFR (CKD-EPI)AfAm Est GFR (CKD-EPI)NonAf POC Glucometer 281 234 Random Glucose Calcium Total Bilirubin AST ALT Alkaline Phosphatase Total Protein Albumin Blood Type A POSITIVE Antibody Screen Negative Crossmatch See Detail 09/19/19 09/19/19 09/19/19 06:23 06:35 06:35 WBC 10.0 RBC 3.55 L Hgb 9.4 L Hct 29.2 L MCV 82.3 MCH 26.6 MCHC 32.3 RDW 13.4 Plt Count 173 MPV 11.1 Sodium 140 Potassium 5.1 Chloride 106 Carbon Dioxide 30 Anion Gap 5 L BUN 10.5 Creatinine 1.0 Est GFR (CKD-EPI)AfAm 63.38 Est GFR (CKD-EPI)NonAf 54.68 POC Glucometer 162 Random Glucose 166 H Calcium 9.1 Total Bilirubin 1.2 H AST 20 ALT 31 Alkaline Phosphatase 76 Total Protein 5.6 L Albumin 2.7 L Blood Type Antibody Screen Crossmatch 09/19/19 12:06 WBC RBC Hgb Hct MCV MCH MCHC RDW Plt Count MPV Sodium Potassium Chloride Carbon Dioxide Anion Gap BUN Creatinine Est GFR (CKD-EPI)AfAm Est GFR (CKD-EPI)NonAf POC Glucometer 203 Random Glucose Calcium Total Bilirubin AST ALT Alkaline Phosphatase Total Protein Albumin Blood Type Antibody Screen Crossmatch Active Medications Generic Name Dose Route Start Last Admin Trade Name Freq PRN Reason Stop Dose Admin Acetaminophen 650 mg 09/18/19 20:00 09/19/19 10:15 Tylenol - PO 650 mg Q6H VENESSA Administration Albuterol/Ipratropium 1 amp 09/18/19 15:29 Duoneb - NEB Q4H PRN SHORTNESS OF BREATH Aspirin 81 mg 09/18/19 22:00 09/19/19 11:14 Ecotrin - PO 81 mg BID VENESSA Administration Atorvastatin Calcium 20 mg 09/18/19 22:00 09/18/19 22:38 Lipitor - PO 20 mg HS VENESSA Administration Diphenhydramine HCl 25 mg 09/18/19 15:29 Benadryl Injection - IVPUSH ONCE PRN FOR ITCHING Diphenhydramine HCl 25 mg 09/18/19 15:29 Benadryl - PO Q6H PRN FOR ITCHING Docusate Sodium 100 mg 09/18/19 22:00 09/19/19 06:26 Colace - PO 100 mg TID VENESSA Administration Ferrous Sulfate 325 mg 09/19/19 10:00 09/19/19 11:14 Feosol - PO 325 mg DAILY VENESSA Administration Folic Acid 1 mg 09/19/19 10:00 09/19/19 11:14 Folic Acid - PO 1 mg DAILY [facility]ENESSA Administration Insulin Aspart 1 vial 09/18/19 16:30 09/19/19 12:07 Novolog Vial Sliding Scale - SQ 4 units ACHS VENESSA Administration Protocol Insulin Detemir 10 units 09/18/19 22:00 09/18/19 22:39 Levemir Vial SQ 10 units HS VENESSA Administration Morphine Sulfate 2 mg 09/18/19 15:29 Morphine Sulfate IVPUSH Q3H PRN Severe Pain 7-10 Naloxone HCl 0.4 mg 09/18/19 15:29 Narcan - IVPUSH ONCE PRN Sedation Ondansetron HCl 4 mg 09/18/19 15:29 Zofran Injection IVPUSH Q6H PRN NAUSEA Ondansetron HCl 4 mg 09/18/19 15:29 Zofran Injection IVPUSH ONCE PRN NAUSEA Oxycodone HCl 5 mg 09/18/19 15:29 Roxicodone - PO Q3H PRN Mild Pain 1-3 Oxycodone HCl 10 mg 09/18/19 15:29 Roxicodone - PO Q3H PRN Moderate Pain 4-6 Oxycodone HCl 10 mg 09/18/19 22:00 09/19/19 11:14 Oxycontin - PO 10 mg BID [facility]ENESSA Administration Pantoprazole Sodium 40 mg 09/19/19 10:00 09/19/19 11:14 Protonix - PO 40 mg DAILY [facility]ENESSA Administration Ramipril 5 mg 09/19/19 10:00 09/19/19 11:14 Altace - PO 5 mg DAILY [facility]ENESSA Administration Ranolazine 500 mg 09/18/19 22:00 09/19/19 11:15 Ranexa - PO 500 mg BID [facility]ENES[facility] Administration ASSESSMENT/PLAN: 78 y/o/f with PMHx of HTN, HLD, DM, CAD, and asthma. She presented for elective surgery for spinal fusion, and is POD#3 for exploration and revision of L1-S1 decompression and fusion, removal of hardware, T12-L1 laminectomy/decompression , and T11-S1 fusion. #Post-op care - Symptom control with PRN Zofran, oxycodone, fentanyl, diphenhydramine, morphine - Incentive spirometery encouraged, wean O2 requirements to room air - Ancef and Vancomycin discontinued - Tissue cx pending, negative to date - 2 units PRBC cross matched, not given yet - Hgb at 9.4, continue to monitor #Hx of DM - BGM - ISS - Levemir 10mg HS #HTN - Ramipril #HLD - Atorvastatin #FEN - IVF discontinued - Monitor and replete lytes as needed - Sodium/Diabetic diet #Prophylaxis - SCDs - Protonix #Disposition - continued D/C planning as per surgery, patient open going to SNF for rehab, discussed with long term care social worker Visit type - Emergency Visit Emergency Visit: Yes ED Registration Date: 09/16/19 Care time: The patient presented to the Emergency Department on the above date and was hospitalized for further evaluation of their emergent condition. - New Patient This patient is new to me today: No - Critical Care Critical Care patient: No - Discharge Referral Referred to [facility] Med P.C.: No ATTENDING PHYSICIAN STATEMENT I saw and evaluated the patient. I reviewed the resident's note and discussed the case with the resident. I agree with the resident's findings and plan as documented. SUBJECTIVE: OBJECTIVE: ASSESSMENT AND PLAN:
[2019-09-19] MEDS ORDERED: ATORVASTATIN CA 40 MG TABLET (FP) PO SCH (14:45)
[2019-09-19] MEDS: ATORVASTATIN CA 40 MG TABLET (FP) PO SCH (21:13)
[2019-09-19] MEDS: INSULIN (LEVEMIR) 100 UNITS/ML UNITS SQ SCH (21:14)
[2019-09-20] MEDS: ACETAMINOPHEN 325 MG TABLET (FP) PO SCH ×4 (01:35→21:22)
[2019-09-20] MEDS: DOCUSATE SODIUM 100 MG CAPSULE (FP) PO SCH ×3 (05:45→21:21)
[2019-09-20] MEDS: INSULIN SLIDING SCALE (NOVOLOG) 1 VIAL SQ SCH ×4 (06:10→21:22)
--- NOTE | 2019-09-20 08:51 | PN ---
Teaching Attending Note Name of Resident: Jami Husain ATTENDING PHYSICIAN STATEMENT I saw and evaluated the patient. I reviewed the resident's note and discussed the case with the resident. I agree with the resident's findings and plan as documented. Seen and examined; please see resident note for further historical information. I personally verified all whitten historical information and exam findings. Personally interpreted all imaging and diagnostics and reviewed appropriate consults. I reviewed all labs and vital signs as per resident note and EMR as documented. I agree with the above assessment and plan unless supplemented by myself in the following. Pending further input from surgical services. Waiting for <30cc/8hrs. DC pending drain removal. 10 item review of systems completed and is negative aside from as discussed in the subjective data in my own/the resident documentation. VS, labs, imaging reviewed NAD, AAO, resting comfortably in bed. RRR s1/2 no mgr Normal muscle tone, moves all 5 extremities with normal apparent strength Neck is supple, trachea midline, no kasi LN Lungs CTAB with sym expansion NT ND +BS no kasi organomegaly CN2-12 wnl; no FND NC AT EOMI PERRLA Normal mood, appropriate behavior, euthymic affect No skin breakdown or rashes noted Assessment and plan: Patient is indicated is only wanting Tylenol for pain management. They have refused oxycodone. Surgery recommends out of bed and ambulation with PT along with a set of spirometer and neurovascular checks. Recommended to continue on aspirin 81 mg twice daily and teds for DVT prophylaxis. DC planning has been initiated and we are discussing with the foster care social worker. She can likely go within the next 24 hours if a bed is made available.
--- NOTE | 2019-09-20 10:46 | PN ---
Progress Note (short form) - Note Progress Note: POD#4 PT states that she is having some back pain, like a spasm pain. OOB and ambulating, had a BM and is voiding without difficulty Vital Signs Period Temp Pulse Resp BP Sys/Peña Pulse Ox Last 24 Hr 98 F-98.4 F 78-94 18-20 102-127/52-72 96 RAI: 55/80 serosangrenous bloody GEN: A&0x3, NAD CV: RRR Lungs: CTA b/l anterioly ABD: soft, non-distended, non-tender. LE: no calf tenderness or swelling b/l. SCDs in place. Back: dressing c/d/i CBC, BMP // 06:35 09/19/ 06:35 A/P; 78 yo female s/p Exploration and revision of L1-S1 decompression and fusion, removal of hardware, T12-L1 laminectomy/decompression and T11-S1 fusion Continue diabetic diet as tolerated OOB to chair with assistance/ambluate with PT DVT ppx begin aspirin 81 mg BID tomorrow(ordered), oob/ambualte/SCDs oral pain medications as needed/stool softners D/w Dr. Enriquez, drain removal prior to discharge, awaiting placement to facility.
[2019-09-20] MEDS: ASPIRIN COATED 81 MG TABLET.EC PO SCH ×2 (11:10→21:22)
[2019-09-20] MEDS: PANTOPRAZOLE 40 MG TABLET PO SCH (11:11)
[2019-09-20] MEDS: RANOLAZINE E.R. 500 MG TABLET (FP) PO SCH ×2 (11:11→21:23)
[2019-09-20] MEDS: FOLIC ACID 1 MG TABLET (FP) PO SCH (11:11)
[2019-09-20] MEDS: oxyCODONE HCL 10 MG SUSTAINED ACTING TABLET PO SCH ×2 (11:11→21:23)
[2019-09-20] MEDS: FERROUS SO4 325 MG TABLET (FP) PO SCH (11:11)
[2019-09-20] MEDS: RAMIPRIL 5 MG CAPSULE (FP) PO SCH (11:15)
--- NOTE | 2019-09-20 17:24 | PN ---
Physical Exam: SUBJECTIVE: Patient seen and examined. No complaints. Patient seen by surgery PA , pending removal of drain for discharge. OBJECTIVE: Vital Signs Period Temp Pulse Resp BP Sys/Peña Pulse Ox Last 24 Hr 98 F-98.4 F 78-91 20-20 102-139/52-75 96-96 GENERAL: The patient is awake, alert, and fully oriented, in no acute distress. HEAD: Normal with no signs of trauma. EYES: EOMI ENT: MMM NECK: Trachea midline, full range of motion, supple. LUNGS: Breath sounds equal, clear to auscultation bilaterally, no wheezes, no crackles, no accessory muscle use. HEART: RRR, no murmur noted ABDOMEN: Soft, nontender, nondistended, normoactive bowel sounds, no guarding EXTREMITIES: 2+ pulses, warm, well-perfused, no edema. NEUROLOGICAL: Normal speech, gait not observed. 5/5 strength upper and lower extremities. PSYCH: Normal mood, normal affect. SKIN: Warm, dry. surgical dressing in place over back, clean, dry, intact Laboratory Results - last 24 hr 09/19/19 09/19/19 09/20/19 17:24 21:11 05:34 POC Glucometer 278 231 131 09/20/19 12:12 POC Glucometer 291 Active Medications Generic Name Dose Route Start Last Admin Trade Name Freq PRN Reason Stop Dose Admin Acetaminophen 650 mg 09/18/19 20:00 09/20/19 13:49 Tylenol - PO Not Given Q6H VENESSA Albuterol/Ipratropium 1 amp 09/18/19 15:29 Duoneb - NEB Q4H PRN SHORTNESS OF BREATH Aspirin 81 mg 09/18/19 22:00 09/20/19 11:10 Ecotrin - PO 81 mg BID VENESSA Administration Atorvastatin Calcium 40 mg 09/19/19 22:00 09/19/19 21:13 Lipitor - PO 40 mg HS VENESSA Administration Diphenhydramine HCl 25 mg 09/18/19 15:29 Benadryl Injection - IVPUSH ONCE PRN FOR ITCHING Diphenhydramine HCl 25 mg 09/18/19 15:29 Benadryl - PO Q6H PRN FOR ITCHING Docusate Sodium 100 mg 09/18/19 22:00 09/20/19 13:53 Colace - PO 100 mg TID VENESSA Administration Ferrous Sulfate 325 mg 09/19/19 10:00 09/20/19 11:11 Feosol - PO 325 mg DAILY VENESSA Administration Folic Acid 1 mg 09/19/19 10:00 09/20/19 11:11 Folic Acid - PO 1 mg DAILY VENESSA Administration Insulin Aspart 1 vial 09/18/19 16:30 09/20/19 12:14 Novolog Vial Sliding Scale - SQ 6 units ACHS VENESSA Administration Protocol Insulin Detemir 10 units 09/18/19 22:00 09/19/19 21:14 Levemir Vial SQ 10 units HS VENESSA Administration Morphine Sulfate 2 mg 09/18/19 15:29 Morphine Sulfate IVPUSH Q3H PRN Severe Pain 7-10 Naloxone HCl 0.4 mg 09/18/19 15:29 Narcan - IVPUSH ONCE PRN Sedation Ondansetron HCl 4 mg 09/18/19 15:29 Zofran Injection IVPUSH Q6H PRN NAUSEA Ondansetron HCl 4 mg 09/18/19 15:29 Zofran Injection IVPUSH ONCE PRN NAUSEA Oxycodone HCl 5 mg 09/18/19 15:29 Roxicodone - PO Q3H PRN Mild Pain 1-3 Oxycodone HCl 10 mg 09/18/19 15:29 Roxicodone - PO Q3H PRN Moderate Pain 4-6 Oxycodone HCl 10 mg 09/18/19 22:00 09/20/19 11:11 Oxycontin - PO 10 mg BID VENESSA Administration Pantoprazole Sodium 40 mg 09/19/19 10:00 09/20/19 11:11 Protonix - PO 40 mg DAILY VENESSA Administration Ramipril 10 mg 09/20/19 10:00 09/20/19 11:15 Altace - PO 10 mg DAILY VENESSA Administration Ranolazine 500 mg 09/18/19 22:00 09/20/19 11:11 Ranexa - PO 500 mg BID VENESSA Administration ASSESSMENT/PLAN: 78 y/o/f with PMHx of HTN, HLD, DM, CAD, and asthma. She presented for elective surgery for spinal fusion, and is POD#3 for exploration and revision of L1-S1 decompression and fusion, removal of hardware, T12-L1 laminectomy/decompression , and T11-S1 fusion. #Post-op care - Symptom control with PRN Zofran, oxycodone, fentanyl, diphenhydramine, morphine - Incentive spirometery encouraged, wean O2 requirements to room air - Ancef and Vancomycin discontinued - Tissue cx pending, negative to date - 2 units PRBC cross matched, not given yet - Hgb at 9.4, continue to monitor #Hx of DM - BGM - ISS - Levemir 10mg HS #HTN - Ramipril #HLD - Atorvastatin #FEN - IVF discontinued - Monitor and replete lytes as needed - Sodium/Diabetic diet #Prophylaxis - SCDs - Protonix #Disposition - continued D/C planning as per surgery, patient accepted for SNF placement, pending removal of drain for D/C Visit type - Emergency Visit Emergency Visit: No - New Patient This patient is new to me today: No - Critical Care Critical Care patient: No ATTENDING PHYSICIAN STATEMENT I saw and evaluated the patient. I reviewed the resident's note and discussed the case with the resident. I agree with the resident's findings and plan as documented. SUBJECTIVE: OBJECTIVE: ASSESSMENT AND PLAN:
[2019-09-20] MEDS: ATORVASTATIN CA 40 MG TABLET (FP) PO SCH (21:21)
[2019-09-20] MEDS: INSULIN (LEVEMIR) 100 UNITS/ML UNITS SQ SCH (21:22)
[2019-09-21] MEDS: ACETAMINOPHEN 325 MG TABLET (FP) PO SCH ×4 (03:04→20:27)
[2019-09-21] MEDS: INSULIN SLIDING SCALE (NOVOLOG) 1 VIAL SQ SCH ×4 (06:37→21:14)
[2019-09-21] MEDS: DOCUSATE SODIUM 100 MG CAPSULE (FP) PO SCH ×3 (06:37→21:11)
--- NOTE | 2019-09-21 09:09 | PN ---
Physical Exam: SUBJECTIVE: Patient seen and examined Patient is afebrile and hemodynamically stable overnight. Patient is pending drain removal, accepted for SNF placement pending authorization. Will discuss with case management. Pain is controlled. 10 item review of systems completed and is negative aside from as discussed in the subjective data in my own/the resident documentation. OBJECTIVE: Vital Signs Period Temp Pulse Resp BP Sys/Peña Pulse Ox Last 24 Hr 98.1 F-98.4 F 72-91 20-20 116-139/40-75 97 GENERAL: The patient is awake, alert, and fully oriented, in no acute distress. HEAD: Normal with no signs of trauma. EYES: PERRL, extraocular movements intact, sclera anicteric, conjunctiva clear. No ptosis. ENT: Ears normal, nares patent, oropharynx clear without exudates, moist mucous membranes. NECK: Trachea midline, full range of motion, supple. LUNGS: Breath sounds equal, clear to auscultation bilaterally, no wheezes, no crackles, no accessory muscle use. HEART: Regular rate and rhythm, S1, S2 without murmur, rub or gallop. ABDOMEN: Soft, nontender, nondistended, normoactive bowel sounds, no guarding, no rebound, no hepatosplenomegaly, no masses. EXTREMITIES: 2+ pulses, warm, well-perfused, no edema. NEUROLOGICAL: Cranial nerves II through XII grossly intact. Normal speech, gait not observed. PSYCH: Normal mood, normal affect. SKIN: Warm, dry, normal turgor, no rashes or lesions noted Laboratory Results - last 24 hr 09/20/19 09/20/19 09/20/19 12:12 17:33 21:17 POC Glucometer 291 168 239 09/21/19 06:35 POC Glucometer 180 Active Medications Generic Name Dose Route Start Last Admin Trade Name Freq PRN Reason Stop Dose Admin Acetaminophen 650 mg 09/18/19 20:00 09/21/19 09:03 Tylenol - PO 650 mg Q6H VENESSA Administration Albuterol/Ipratropium 1 amp 09/18/19 15:29 Duoneb - NEB Q4H PRN SHORTNESS OF BREATH Aspirin 81 mg 09/18/19 22:00 09/20/19 21:22 Ecotrin - PO 81 mg BID VENESSA Administration Atorvastatin Calcium 40 mg 09/19/19 22:00 09/20/19 21:21 Lipitor - PO 40 mg HS VENESSA Administration Diphenhydramine HCl 25 mg 09/18/19 15:29 Benadryl Injection - IVPUSH ONCE PRN FOR ITCHING Diphenhydramine HCl 25 mg 09/18/19 15:29 Benadryl - PO Q6H PRN FOR ITCHING Docusate Sodium 100 mg 09/18/19 22:00 09/21/19 06:37 Colace - PO 100 mg TID VENESSA Administration Ferrous Sulfate 325 mg 09/19/19 10:00 09/20/19 11:11 Feosol - PO 325 mg DAILY VENESSA Administration Folic Acid 1 mg 09/19/19 10:00 09/20/19 11:11 Folic Acid - PO 1 mg DAILY VENESSA Administration Insulin Aspart 1 vial 09/18/19 16:30 09/21/19 06:37 Novolog Vial Sliding Scale - SQ 2 units ACHS VENESSA Administration Protocol Insulin Detemir 10 units 09/18/19 22:00 09/20/19 21:22 Levemir Vial SQ 10 units HS VENESSA Administration Morphine Sulfate 2 mg 09/18/19 15:29 Morphine Sulfate IVPUSH Q3H PRN Severe Pain 7-10 Naloxone HCl 0.4 mg 09/18/19 15:29 Narcan - IVPUSH ONCE PRN Sedation Ondansetron HCl 4 mg 09/18/19 15:29 Zofran Injection IVPUSH Q6H PRN NAUSEA Ondansetron HCl 4 mg 09/18/19 15:29 Zofran Injection IVPUSH ONCE PRN NAUSEA Oxycodone HCl 5 mg 09/18/19 15:29 Roxicodone - PO Q3H PRN Mild Pain 1-3 Oxycodone HCl 10 mg 09/18/19 15:29 Roxicodone - PO Q3H PRN Moderate Pain 4-6 Oxycodone HCl 10 mg 09/18/19 22:00 09/20/19 21:23 Oxycontin - PO Not Given BID [facility] Pantoprazole Sodium 40 mg 09/19/19 10:00 09/20/19 11:11 Protonix - PO 40 mg DAILY [facility] Administration Ramipril 10 mg 09/20/19 10:00 09/20/19 11:15 Altace - PO 10 mg DAILY [facility] Administration Ranolazine 500 mg 09/18/19 22:00 09/20/19 21:23 Ranexa - PO 500 mg BID VENESSA Administration ASSESSMENT/PLAN: Visit type - Emergency Visit Emergency Visit: No - New Patient This patient is new to me today: No - Critical Care Critical Care patient: No
[2019-09-21] MEDS: FOLIC ACID 1 MG TABLET (FP) PO SCH (09:56)
[2019-09-21] MEDS: RAMIPRIL 5 MG CAPSULE (FP) PO SCH (09:56)
[2019-09-21] MEDS: PANTOPRAZOLE 40 MG TABLET PO SCH (09:56)
[2019-09-21] MEDS: RANOLAZINE E.R. 500 MG TABLET (FP) PO SCH ×2 (09:57→21:11)
[2019-09-21] MEDS: ASPIRIN COATED 81 MG TABLET.EC PO SCH ×2 (09:57→21:10)
[2019-09-21] MEDS: oxyCODONE HCL 10 MG SUSTAINED ACTING TABLET PO SCH ×2 (09:57→21:11)
[2019-09-21] MEDS: FERROUS SO4 325 MG TABLET (FP) PO SCH (09:57)
[2019-09-21 11:24] LABS: BASO % 0.4 % (0-2.0); EOS % 3.4 % (0-4.5); HEMATOCRIT 32.1 % (32.4-45.2); HEMOGLOBIN 10.4 GM/dL (10.7-15.3); LYMPH % 15.4 % (8-40); MCH 26.8 pg (25.7-33.7); MCHC 32.3 g/dl (32.0-36.0); MEAN CELL VOLUME 83.2 fl (80-96); MEAN PLT VOLUME 10.3 fl (7.5-11.1); MONO % 10.3 % (3.8-10.2); NEUT % 70.5 % (42.8-82.8); PLATELET COUNT 262 K/MM3 (134-434); RBC 3.86 M/mm3 (3.60-5.2); RDW 13.9 % (11.6-15.6); WHITE BLOOD COUNT 7.1 K/mm3 (4.0-10.0)
[2019-09-21 11:50] LABS: BLOOD UREA NITROGEN 12.4 mg/dL (7-18); CALCIUM 9.6 mg/dL (8.5-10.1); CREATININE 1.2 mg/dL (0.55-1.3); MAGNESIUM 1.9 mg/dL (1.8-2.4); POTASSIUM 4.9 mmol/L (3.5-5.1)
--- NOTE | 2019-09-21 12:49 | PN ---
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
[2019-09-21] MEDS: ATORVASTATIN CA 40 MG TABLET (FP) PO SCH (21:10)
[2019-09-21] MEDS: INSULIN (LEVEMIR) 100 UNITS/ML UNITS SQ SCH (21:15)
[2019-09-22] MEDS: ACETAMINOPHEN 325 MG TABLET (FP) PO SCH ×4 (01:32→20:05)
[2019-09-22] MEDS: DOCUSATE SODIUM 100 MG CAPSULE (FP) PO SCH ×3 (06:07→21:10)
[2019-09-22] MEDS: INSULIN SLIDING SCALE (NOVOLOG) 1 VIAL SQ SCH ×4 (06:09→21:12)
[2019-09-22] MEDS ORDERED: PT OWN MED DRAWER 7, Y5N ONE (09:01)
[2019-09-22] MEDS: oxyCODONE HCL 10 MG SUSTAINED ACTING TABLET PO SCH ×2 (09:02→21:11)
[2019-09-22] MEDS: PANTOPRAZOLE 40 MG TABLET PO SCH (09:02)
[2019-09-22] MEDS: FOLIC ACID 1 MG TABLET (FP) PO SCH (09:02)
[2019-09-22] MEDS: FERROUS SO4 325 MG TABLET (FP) PO SCH (09:02)
[2019-09-22] MEDS: RAMIPRIL 5 MG CAPSULE (FP) PO SCH (09:02)
[2019-09-22] MEDS: RANOLAZINE E.R. 500 MG TABLET (FP) PO SCH ×2 (09:03→21:11)
[2019-09-22] MEDS: ASPIRIN COATED 81 MG TABLET.EC PO SCH ×2 (09:03→21:11)
[2019-09-22] MEDS ORDERED: MAGNESIUM CITRATE 300 ML BOTTLE PO ONE (09:30)
--- NOTE | 2019-09-22 10:32 | PN ---
Progress Note (short form) - Note Progress Note: POD#6 Doing well Apyrexial Sitting eating breakfast Wound dry Neuro at baseline Drainage hvac 90 leave PLAN Reassess for D/c drain and then d/c to rehab tomorrow
--- NOTE | 2019-09-22 13:23 | PN ---
Physical Exam: SUBJECTIVE: Patient seen and examined at bedside. No complaints. Mild pain at surgical site. OBJECTIVE: Vital Signs Period Temp Pulse Resp BP Sys/Peña Pulse Ox Last 24 Hr 97.5 F-98.1 F 78-93 18-20 105-168/58-80 98 Gen: AAOx3, NAD HEENT: NCAT, EOMI Cardio: sys murmur at cardiac base. S1s2 Pulm: CTA b/l Back: midline surgical site with dressing CDI. Drain in place with moderate drainage (90 cc) overnight. Abd: soft, nontender, nondistended Ext: no edema MSK: ROM equal and intact. Strength intact. Sensation intact. Laboratory Results - last 24 hr 09/21/19 09/21/19 09/22/19 17:18 21:13 06:06 POC Glucometer 202 337 183 09/22/19 12:11 POC Glucometer 235 Active Medications Generic Name Dose Route Start Last Admin Trade Name Freq PRN Reason Stop Dose Admin Acetaminophen 650 mg 09/18/19 20:00 09/22/19 08:57 Tylenol - PO 650 mg Q6H VENESSA Administration Albuterol/Ipratropium 1 amp 09/18/19 15:29 Duoneb - NEB Q4H PRN SHORTNESS OF BREATH Aspirin 81 mg 09/18/19 22:00 09/22/19 09:03 Ecotrin - PO 81 mg BID VENESSA Administration Atorvastatin Calcium 40 mg 09/19/19 22:00 09/21/19 21:10 Lipitor - PO 40 mg HS VENESSA Administration Diphenhydramine HCl 25 mg 09/18/19 15:29 Benadryl Injection - IVPUSH ONCE PRN FOR ITCHING Diphenhydramine HCl 25 mg 09/18/19 15:29 Benadryl - PO Q6H PRN FOR ITCHING Docusate Sodium 100 mg 09/18/19 22:00 09/22/19 06:07 Colace - PO 100 mg TID VENESSA Administration Ferrous Sulfate 325 mg 09/19/19 10:00 09/22/19 09:02 Feosol - PO 325 mg DAILY VENESSA Administration Folic Acid 1 mg 09/19/19 10:00 09/22/19 09:02 Folic Acid - PO 1 mg DAILY VENESSA Administration Insulin Aspart 1 vial 09/18/19 16:30 09/22/19 12:31 Novolog Vial Sliding Scale - SQ 4 units ACHS VENESSA Administration Protocol Insulin Detemir 10 units 09/18/19 22:00 09/21/19 21:15 Levemir Vial SQ 10 units HS VENESSA Administration Naloxone HCl 0.4 mg 09/18/19 15:29 Narcan - IVPUSH ONCE PRN Sedation Ondansetron HCl 4 mg 09/18/19 15:29 Zofran Injection IVPUSH Q6H PRN NAUSEA Ondansetron HCl 4 mg 09/18/19 15:29 Zofran Injection IVPUSH ONCE PRN NAUSEA Oxycodone HCl 10 mg 09/18/19 22:00 09/22/19 09:02 Oxycontin - PO Not Given BID VENESSA Pantoprazole Sodium 40 mg 09/19/19 10:00 09/22/19 09:02 Protonix - PO 40 mg DAILY VENESSA Administration Ramipril 10 mg 09/20/19 10:00 09/22/19 09:02 Altace - PO 10 mg DAILY VENESSA Administration Ranolazine 500 mg 09/18/19 22:00 09/22/19 09:03 Ranexa - PO 500 mg BID VENESSA Administration ASSESSMENT/PLAN: 78 y/o/f with PMHx of HTN, HLD, DM, CAD, and asthma. She presented for elective surgery for spinal fusion , for exploration and revision of L1-S1 decompression and fusion, removal of hardware, T12-L1 laminectomy/decompression, and T11-S1 fusion on 09/16/19. Spine surgery -procedure on 09/16/19 -pain adequately controlled -No BM yet. C/w stool softener -Seen by surg today. Continues to drain from wound -plan for discharge to rehab tomorrow Vague intermittent dizziness -will check orthostatics - Visit type - Emergency Visit Emergency Visit: No - New Patient This patient is new to me today: Yes Date on this admission: 09/22/19 - Critical Care Critical Care patient: No ATTENDING PHYSICIAN STATEMENT I saw and evaluated the patient. I reviewed the resident's note and discussed the case with the resident. I agree with the resident's findings and plan as documented. SUBJECTIVE: OBJECTIVE: ASSESSMENT AND PLAN:
[2019-09-22] MEDS ORDERED: LACTULOSE 20 GM/30 ML UDC (FOR ORAL USE ONLY) PO ONE (17:45)
[2019-09-22] MEDS: ATORVASTATIN CA 40 MG TABLET (FP) PO SCH (21:10)
[2019-09-22] MEDS: INSULIN (LEVEMIR) 100 UNITS/ML UNITS SQ SCH (21:12)
[2019-09-23] MEDS: ACETAMINOPHEN 325 MG TABLET (FP) PO SCH ×2 (01:29→09:33)
[2019-09-23] MEDS: DOCUSATE SODIUM 100 MG CAPSULE (FP) PO SCH (06:10)
[2019-09-23] MEDS: INSULIN SLIDING SCALE (NOVOLOG) 1 VIAL SQ SCH ×2 (06:11→11:36)
[2019-09-23] MEDS ORDERED: INSULIN (LEVEMIR) 100 UNITS/ML UNITS SQ ONE (06:22)
--- NOTE | 2019-09-23 08:31 | PN ---
Progress Note (short form) - Note Progress Note: POD# Exploration and revision of L1-S1 decompression and fusion, removal of hardware, T12-L1 laminectomy/decompression and T11-S1 fusion. Patient seen and examined at the bedside with no complaints. She has been OOB ambulating to the bathroom without assistance, She is voiding and moving her bowels. She states that she still has paresthesias radiating over b/l anterior thighs to her knees which has been unchanged from her pre op symptoms. The patient is tolerating her diet and denies any CP, SOB, N/V fever or chills. Vital Signs Temp 98 F 09/23/19 06:53 Pulse 86 09/23/19 06:53 Resp 18 09/23/19 06:53 BP 145/80 09/23/19 06:53 Pulse Ox 93 L 09/22/19 20:57 Intake & Output 09/22/19 09/22/19 09/23/19 11:59 23:59 11:59 Output Total 90 50 Balance -90 -50 Output: Drainage 90 50 Back 90 50 Other: Voiding Method Toilet Toilet # Unmeasured Voids Void 1 2 1 Bowel Movement Yes # Bowel Movements 4 CBC, BMP 02 10:53 09/21/19 10:53 PE: A&Ox3, NAD Unlabored resp on RA Incision C/D/I with dorita in situ and surrounding tissue intact with no evidence of tracking erythema, edema, collection or actiive d/c. Hemavac drain removed with tip fully intact and no active drainage at ostomy site. clean dry dressing applied. B/l LE compartments soft, supple and non-tender with 5/5 dorsi/plantar flexion. Problem List - Problems (1) H/O lumbosacral spine surgery Assessment/Plan: POD #7 revision of multi level fusion doing well. -OOB with brace as tolerated -Encourage IS -Pain contorl -d/c planning for rehab vs home Evaluation and plan discussed with Dr Enriquez Code(s): Z98.890 - OTHER SPECIFIED POSTPROCEDURAL STATES
--- NOTE | 2019-09-23 08:50 | PN ---
Teaching Attending Note Name of Resident: John Díaz ATTENDING PHYSICIAN STATEMENT I saw and evaluated the patient. I reviewed the resident's note and discussed the case with the resident. I agree with the resident's findings and plan as documented. SUBJECTIVE: Seen and examined;l being discharged to facility. No new complaints. Drains removed. No obvious postoperative comp[laints. Medically clear with no changes to chronic management. 10 sys ROS done and negative aside from HPI Agree with DC instructions per surgical services Agree with followup per resident note Diet OK Activity per orthopedics.
--- NOTE | 2019-09-23 08:51 | PN ---
Teaching Attending Note Name of Resident: John Díaz ATTENDING PHYSICIAN STATEMENT I saw and evaluated the patient. I reviewed the resident's note and discussed the case with the resident. I agree with the resident's findings and plan as documented. SUBJECTIVE: Pain controlled, neurovascularly intact. OBJECTIVE: NAD AAO resting in bed Moves all 4 ext, CN2-12 wnl, no fnd Normal mood, appropriate ehavior ASSESSMENT AND PLAN: Patient is indicated is only wanting Tylenol for pain management. They have refused oxycodone. Surgery recommends out of bed and ambulation with PT along with a set of spirometer and neurovascular checks. Recommended to continue on aspirin 81 mg twice daily and teds for DVT prophylaxis. DC planning has been initiated and we are discussing with the social work specialist. She can likely go within the next 24 hours if a bed is made available. DC tomorrow with ed availablility Drains removed DC instructions per surgery.
[2019-09-23] MEDS ORDERED: PT OWN MED DRAWER 7, Y5N ONE (09:29)
[2019-09-23] MEDS: RAMIPRIL 5 MG CAPSULE (FP) PO SCH (09:34)
[2019-09-23] MEDS: ASPIRIN COATED 81 MG TABLET.EC PO SCH (09:34)
[2019-09-23] MEDS: PANTOPRAZOLE 40 MG TABLET PO SCH (09:35)
[2019-09-23] MEDS: FOLIC ACID 1 MG TABLET (FP) PO SCH (09:35)
[2019-09-23] MEDS: oxyCODONE HCL 10 MG SUSTAINED ACTING TABLET PO SCH (09:35)
[2019-09-23] MEDS: FERROUS SO4 325 MG TABLET (FP) PO SCH (09:35)
[2019-09-23] MEDS: RANOLAZINE E.R. 500 MG TABLET (FP) PO SCH (09:36)
[2019-09-23 09:41] LABS: HEMOGLOBIN 10.5 GM/dL (10.7-15.3); MCH 26.4 pg (25.7-33.7); MEAN CELL VOLUME 82.6 fl (80-96); MEAN PLT VOLUME 9.8 fl (7.5-11.1); PLATELET COUNT 317 K/MM3 (134-434); RBC 3.99 M/mm3 (3.60-5.2); RDW 13.5 % (11.6-15.6); WHITE BLOOD COUNT 7.4 K/mm3 (4.0-10.0)
[2019-09-23 10:12] LABS: BLOOD UREA NITROGEN 9.6 mg/dL (7-18); CALCIUM 9.8 mg/dL (8.5-10.1); CREATININE 1.2 mg/dL (0.55-1.3); POTASSIUM 5.3 mmol/L (3.5-5.1)
[2019-09-23] MEDS ORDERED: INSULIN (NOVOLOG) ASPART 100 UNITS/ML 10ML VIAL SQ ONE (11:45)
[2019-09-23] MEDS ORDERED: DEXTROSE 50%-WATER - 25 GM/50 ML VIAL IVPUSH ONE (11:46)
[2019-09-23 11:58] VITALS: BP 161/80; PULSE 79; TEMP 98.5
--- NOTE | 2019-09-23 12:03 | DS ---
Physical Exam: SUBJECTIVE: Patient seen and examined at bedside. States she has mild back pain but looking forward to going to rehab today. OBJECTIVE: Vital Signs Period Temp Pulse Resp BP Sys/Peña Pulse Ox Last 24 Hr 98 F-98.5 F 79-91 18-20 130-161/65-80 93 PHYSICAL EXAM GENERAL: The patient is awake, alert, and fully oriented, in no acute distress. NECK: supple. LUNGS: Breath sounds equal, clear to auscultation bilaterally, no wheezes, no crackles, no accessory muscle use. HEART: Regular rate and rhythm, S1, S2 without murmur, rub or gallop. ABDOMEN: Soft, nontender, nondistended, normoactive bowel sounds. EXTREMITIES: 2+ pulses, warm, well-perfused, no edema. SKIN: drain removed LABS Laboratory Results - last 24 hr 09/22/19 09/22/19 09/22/19 12:11 17:41 21:10 WBC RBC Hgb Hct MCV MCH MCHC RDW Plt Count MPV Sodium Potassium Chloride Carbon Dioxide Anion Gap BUN Creatinine Est GFR (CKD-EPI)AfAm Est GFR (CKD-EPI)NonAf POC Glucometer 235 185 221 Random Glucose Calcium 09/23/19 09/23/19 09/23/19 06:10 08:10 08:10 WBC 7.4 RBC 3.99 Hgb 10.5 L Hct 33.0 MCV 82.6 MCH 26.4 MCHC 32.0 RDW 13.5 Plt Count 317 D MPV 9.8 Sodium 140 Potassium 5.3 H Chloride 100 Carbon Dioxide 34 H Anion Gap 5 L BUN 9.6 Creatinine 1.2 Est GFR (CKD-EPI)AfAm 50.84 Est GFR (CKD-EPI)NonAf 43.86 POC Glucometer 165 Random Glucose 150 H Calcium 9.8 09/23/19 11:33 WBC RBC Hgb Hct MCV MCH MCHC RDW Plt Count MPV Sodium Potassium Chloride Carbon Dioxide Anion Gap BUN Creatinine Est GFR (CKD-EPI)AfAm Est GFR (CKD-EPI)NonAf POC Glucometer 224 Random Glucose Calcium HOSPITAL COURSE: Date of Admission:09/16/19 Patient is s/p exploration and revision of L1-S1 decompression and fusion, removal of hardware, T12-L1 laminectomy/decompression, and T11-S1 fusion with Dr. Hutson. We were consulted as the medicine team. Pt was treated for her pain per Dr. Hutson and expected to follow up with him. Pt sent home on ASA 81 BID per surgery and we recommended BMP repeated in 3-5 days with PCP given acute hyperkalemia today. Date of Discharge: 09/23/19 Minutes to complete discharge: 35 Discharge Summary Problems reviewed: Yes Reason For Visit: LOWER BACK PAIN Current Active Problems CAD (coronary artery disease) (Chronic) Diabetes mellitus (Chronic) H/O lumbosacral spine surgery (Chronic) HLD (hyperlipidemia) (Chronic) HTN (hypertension) (Chronic) Condition: Good - Instructions Diet, Activity, Other Instructions: Post Operative Instructions Physical Activity Resume your normal everyday activity as tolerated. No heavy lifting or exercise until seen by your surgeon. You may walk unlimited amounts and climb stairs. You may resume driving the car when you feel safe and comfortable behind the wheel. Do not operate a vehicle while taking narcotic medication. Wound Care Keep your incision clean, dry and covered at all times. Do no apply lotion or ointments to incision. The dorita will be removed in the office in 10-14 days post-op. Diet There are no dietary restrictions. Eat healthy, high-fiber foods. Drink 6-8 glasses of liquid each day. This will assist in keeping your bowels regular. Pain Management You may take Tylenol or acetaminophen. Any pain prescription medication ordered should be taken as prescribed for moderate to severe pain. Avoid any ibuprofen (Motrin, Advil, Aleve, Toradol, etc) for 3 months unless otherwise discussed with your surgeon. Continue Aspirin 81mg TWICE DAILY x 6 weeks post op to prevent blood clots. Call Dr Enriquez for any of the following: Severe pain not relieved by medication Fever of 101 or higher Excessive bleeding or drainage on dressing Inability to urinate Any chest pain or shortness of breath, seek Emergency Care. Please call the office at to confirm your post-op appointment for the week following surgery. Please repeat BMP with your primary care physician in 3-5 days of leaving here. Referrals: Los Martinez MD [Staff Physician] - 1 Week (rpt BMP to ensure normalized K ) Disposition: [facility] - Home Medications Comprehensive Discharge Medication List: Ambulatory Orders Atorvastatin Ca [Lipitor] 40 mg PO HS 09/13/19 Glimepiride [Amaryl -] 4 mg PO BID 09/13/19 Insulin Aspart [Novolog] 10 unit SQ TIDCM 09/13/19 Metformin HCl [Glucophage] 1,000 mg PO BID 09/13/19 Ramipril [Altace] 10 mg PO DAILY 09/13/19 Semaglutide [Ozempic] 1 mg SQ WEEKLY 09/13/19 Aspirin Coated [Ecotrin -] 81 mg PO BID tablet.ec 09/23/19 Docusate Sodium [Colace -] 100 mg PO TID capsule 09/23/19 Ferrous Sulfate [Feosol] 325 mg PO DAILY ud 09/23/19 Folic Acid - 1 mg PO DAILY tablet 09/23/19 This patient is new to me today: Yes Date on this admission: 09/23/19 Emergency Visit: No Critical Care patient: No - Discharge Referral Referred to [facility] Med [facility] No ATTENDING PHYSICIAN STATEMENT I saw and evaluated the patient. I reviewed the resident's note and discussed the case with the resident. I agree with the resident's findings and plan as documented. SUBJECTIVE: OBJECTIVE: ASSESSMENT AND PLAN:
[2019-09-23 13:50] LABS: BLOOD UREA NITROGEN 10.1 mg/dL (7-18); CALCIUM 9.7 mg/dL (8.5-10.1); CREATININE 1.2 mg/dL (0.55-1.3); POTASSIUM 5.1 mmol/L (3.5-5.1)
--- NOTE | 2019-10-08 10:14 | SURG ---
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 For further detail, please refer to operative report. Visit type - Case Type Case Type: Scheduled - Emergency Emergency Visit: No - New patient This patient is new to me today: Yes Date on this admission: 10/08/19
== END 2019-09-23 14:59 | DRG 460 ==
LOC: JSAMEDAYSX 06:11 → JICU 16:58 → J8W 09-18 14:34
PROVIDERS: ADMIT Internal Medicine; ATTEND Internal Medicine
PROC: 0RGA071 Fusion of Thoracolumbar Vertebral Joint with Autologous Tissue Substitute, Posterior Approach, Posterior Column, Open Approach (ICD-10-PCS; 2019-09-16)
PROC: 0RG6071 Fusion of Thoracic Vertebral Joint with Autologous Tissue Substitute, Posterior Approach, Posterior Column, Open Approach (ICD-10-PCS; 2019-09-16)
PROC: 0PH404Z Insertion of Internal Fixation Device into Thoracic Vertebra, Open Approach (ICD-10-PCS; 2019-09-16)
PROC: 00NX0ZZ Release Thoracic Spinal Cord, Open Approach (ICD-10-PCS; 2019-09-16)
PROC: 0SG1071 Fusion of 2 or more Lumbar Vertebral Joints with Autologous Tissue Substitute, Posterior Approach, Posterior Column, Open Approach (ICD-10-PCS; 2019-09-16)
PROC: 00NY0ZZ Release Lumbar Spinal Cord, Open Approach (ICD-10-PCS; 2019-09-16)
PROC: 0SG3071 Fusion of Lumbosacral Joint with Autologous Tissue Substitute, Posterior Approach, Posterior Column, Open Approach (ICD-10-PCS; 2019-09-16)
PROC: 07DR3ZZ Extraction of Iliac Bone Marrow, Percutaneous Approach (ICD-10-PCS; 2019-09-16)
PROC: B01BZZZ Fluoroscopy of Spinal Cord (ICD-10-PCS; 2019-09-16)
PROC: 4A1004G Monitoring of Central Nervous Electrical Activity, Intraoperative, Open Approach (ICD-10-PCS; 2019-09-16)
PROC: 0RPA04Z Removal of Internal Fixation Device from Thoracolumbar Vertebral Joint, Open Approach (ICD-10-PCS; principal; 2019-09-16 08:00)
DX: T84.098A Other mechanical complication of other internal joint prosthesis, initial encounter (principal); I10 Essential (primary) hypertension; E11.9 Type 2 diabetes mellitus without complications; J45.909 Unspecified asthma, uncomplicated; M54.9 Dorsalgia, unspecified; M48.00 Spinal stenosis, site unspecified; I25.10 Atherosclerotic heart disease of native coronary artery without angina pectoris; E78.5 Hyperlipidemia, unspecified; Y83.9 Surgical procedure, unspecified as the cause of abnormal reaction of the patient, or of later complication, without mention of misadventure at the time of the procedure; E66.9 Obesity, unspecified; Z68.32 Body mass index [BMI] 32.0-32.9, adult; M40.205 Unspecified kyphosis, thoracolumbar region
CPT/HCPCS: 36415; 76000-TC-FY; 80048; 80053; 82962; 83735; 84100; 85025; 85027; 85610; 85730; 86850; 86891; 86900; 86901; 86922; 87070; 87075; 87205; 88300-TC; 94010; 94640; 94760; 97116-GP; 97162-GP; J0131; J1644